=== PATIENT | male | born 1955 | race Caucasian/White ===

== ENCOUNTER 2016-12-04 22:11 | Emergency (ER) | payer MEDICAID ==
[~2016-12-04] VITALS: Ht 188 cm; Wt 43.1 kg
[2016-12-04 22:23] VITALS: BP 146/93
--- NOTE | 2016-12-05 00:18 | NUR ---
PATIENT LEFT WITHOUT BEING SEEN BY DR. ROBERT. NO FURTHER CARE PROVIDED FOR PATIENT.
== END 2016-12-05 00:10 | disposition left against medical advice (07) ==
LOC: MED 22:11
DX: F10.129 Alcohol abuse with intoxication, unspecified (principal); Y90.9 Presence of alcohol in blood, level not specified; Z53.21 Procedure and treatment not carried out due to patient leaving prior to being seen by health care provider

== ENCOUNTER 2017-01-25 01:57 | Emergency (ER) | payer MEDICAID ==
[~2017-01-25] VITALS: Ht 188 cm; Wt 90.7 kg
[2017-01-25 02:06] VITALS: BP 160/119
--- NOTE | 2017-01-25 03:15 | NUR ---
PATIENT LEFT WITHOUT BEING SEEN BY DR. ROBERT. NO FURTHER CARE PROVIDED FOR PATIENT.
[2017-04-28] MEDS ORDERED: BACTRIM 400 MG-1 TAB PO (12:43)
[2017-04-28] MEDS ORDERED: MOTRIN600 MG PO (13:21)
== END 2017-01-25 03:15 | disposition left against medical advice (07) ==
LOC: MED 01:57
DX: M79.604 Pain in right leg (principal); Z53.21 Procedure and treatment not carried out due to patient leaving prior to being seen by health care provider

== ENCOUNTER 2017-04-24 08:44 | Inpatient (IN) | payer MEDICAID ==
[~2017-04-24] VITALS: Ht 188 cm; Wt 95.3 kg
[2017-04-24 08:52] VITALS: BP 166/101
[2017-04-24] MEDS ORDERED: UNKNOWN BP MED (08:57)
--- NOTE | 2017-04-24 09:00 | NUR ---
Patient ambulated to bed 07.
--- NOTE | 2017-04-24 09:02 | NUR ---
Dr. Barahona at bedside.
--- NOTE | 2017-04-24 09:04 | NUR ---
PATIENT PRESENTS TO ED FOR ABSCESS TO HEAD WITH DRAINAGE AND PAIN X1WK. HX HTN, ARTHRITIS . PT STATES HE FEELS NAUSEATED AND VOMITTED; SKIN IS PINK/WARM/DRY; AAOX4 WITH EVEN AND STEADY GAIT; PT DENIES ANY FEVER, CP, SOB, OR COUGH AT THIS TIME; PATIENT STATES PAIN OF 9/10 HEADACHE AT THIS TIME; PATIENT POSITIONED FOR COMFORT; HOB ELEVATED; BEDRAILS UP X2; BED DOWN. ER MD AT BEDSIDE.
[2017-04-24] MEDS ORDERED: IBUPROFEN 400 MG TAB PO ONE (09:10)
[2017-04-24] MEDS ORDERED: ceFAZolin 1,000 MG VIAL IM ONE (09:10)
[2017-04-24] MEDS ORDERED: KETOROLAC 30 MG/ML VIAL IVP ONE (09:20)
[2017-04-24] MEDS ORDERED: ceFAZolin 1,000 MG VIAL ONE (09:33)
--- NOTE | 2017-04-24 09:33 | NUR ---
PATIENT TO CT VIA GURNEY ACCOMPANIED BY MACHINING AND ASSEMBLY SUPERVISOR
--- NOTE | 2017-04-24 09:39 | NUR ---
[facility]
[2017-04-24 09:55] LABS: BASOPHILS # (AUTO) 0.2 K/uL (0.00-0.22); BASOPHILS % (AUTO) 1.8 % (0.0-2.0); EOSINOPHILS # (AUTO) 0.2 K/uL (0-0.4); EOSINOPHILS % (AUTO) 1.4 % (0.0-4.0); HEMATOCRIT 39.6 % (36-52); LYMPHOCYTES # (AUTO) 1.6 K/uL (2.0-11.5); LYMPHOCYTES % (AUTO) 11.4 % (20.5-51.1); MEAN CORPUSCULAR HEMOGLOBIN 32 pg (27-31); MEAN CORPUSCULAR HGB CONC 33 g/dL (33-37); MEAN CORPUSCULAR VOLUME 96 fL (80-94); MONOCYTES # (AUTO) 0.7 K/uL (0.8-1.0); MONOCYTES % (AUTO) 5.4 % (1.7-9.3); NEUTROPHILS # (AUTO) 10.9 K/uL (1.8-7.7); PLATELET COUNT (AUTO) 412 K/uL (140-450); RED BLOOD CELL COUNT(AUTO) 4.12 MIL/uL (4.20-6.10); RED CELL DISTRIBUTION WIDTH 13.1 % (11.6-13.7); WHITE BLOOD COUNT (AUTO) 13.6 K/uL (4.8-10.8)
--- NOTE | 2017-04-24 09:58 | NUR ---
MATTHIEU RUBIN MADE AWARE OF PT'S HIGH BP;
[2017-04-24 10:02] LABS: ALBUMIN 2.6 g/dL (3.4-5.0); ANION GAP 10.2 (8-16); CALCIUM 8.6 mg/dL (8.5-10.1); CARBON DIOXIDE 29.9 mmol/L (21-32); POTASSIUM 3.1 mmol/L (3.5-5.1); TOTAL BILIRUBIN 0.5 mg/dL (0.0-1.0); TOTAL PROTEIN, SERUM 7.2 g/dL (6.4-8.2)
--- NOTE | 2017-04-24 10:02 | NUR ---
ANCEF 500 MG AND IBUPROFEN 400 MG WAS WASTED AT PHARMACEUTICAL BIN;ER CHANGE ORDER OF ANCEF 1000MG IVP AND IBUPROFEN 400 MG TO TORADOL 30 MG IVP.
[2017-04-24 10:04] LABS: LACTIC ACID 1.3 mmol/L (0.4-2.0)
[2017-04-24] MEDS ORDERED: POTASSIUM CHLORIDE 10 MEQ TABER PO ONE (10:10)
[2017-04-24] MEDS ORDERED: MAGNESIUM OXIDE 400 MG TAB PO ONE (10:10)
[2017-04-24] MEDS ORDERED: ENALAPRILAT 2.5 MG/2 ML VIAL IVP ONE (10:10)
[2017-04-24] MEDS ORDERED: ONDANSETRON 4 MG/2 ML VIAL IVP PRN (10:15)
[2017-04-24] MEDS ORDERED: LORazepam 2 MG/ML VIAL IVP PRN (10:15)
[2017-04-24] MEDS ORDERED: ACETAMINOPHEN 325 MG TAB PO PRN (10:15)
--- NOTE | 2017-04-24 10:15 | NUR ---
CALLED PHARMACY MAGNESIUM OXIDE NOT LOADED IN THE PHYXIS;INFORMED ME THEY WILL BRING THE MEDICINE.
[2017-04-24 10:31] LABS: INR 1.1 (0.8-1.2); PARTIAL THROMBOPLASTIN TIME 24.8 secs (22-35.6)
--- NOTE | 2017-04-24 10:33 | NUR ---
XRAY at bedside.
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
--- NOTE | 2017-04-24 10:44 | NUR ---
Patient will be admitted to care of DR GALLEGO. Admited to [facility]. Will go to room 115. Belongings list completed. Report to FANNIE MULLEN.
[2017-04-24 10:54] LABS: APPEARANCE,URINE CLEAR (CLEAR); BILIRUBIN,URINE NEGATIVE (NEGATIVE); BLOOD, URINE NEGATIVE (NEGATIVE); COLOR,URINE YELLOW (YELLOW); LEUKOCYTE ESTERASE ,URINE NEGATIVE (NEGATIVE); NITRITE, URINE NEGATIVE (NEGATIVE); PROTEIN,URINE NEGATIVE (NEGATIVE); UGLUCOSE NEGATIVE (NEGATIVE)
[2017-04-24 11:10] VITALS: BP 146/83
--- NOTE | 2017-04-24 11:10 | NUR ---
RECEIVED PATIENT FROM ED PER WHEELCHAIR. RFA PERIPHERAL IV PATENT AND INTACT. URINE AND BOWEL CONTINENT. PATIENT IS ORIENTED X4. SKIN WARM TO TOUCH WNL, TOENAILS WNL, NO EDEMA, WITH HAIR GROWTH AND +3 BILATERAL PEDAL PULSES. ORIENTED TO CALL LIGHT, BED CONTROL, TV, PHONE. MADE COMFORTABLE IN BED. CALL LIGHT WITHIN REACH. WILL MONITOR PATIENT.
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
[2017-04-24 13:10] VITALS: BP 151/91
--- NOTE | 2017-04-24 13:10 | NUR ---
RECEIVED PT FROM ICU NURSE SEBAS AT BEDSIDE. PT IS SLEEPING. PT HAS IV ON R F/1 20G RUNNING NS@5. PT HAS DSG ON L SCALP AND L F/A. DRY SCABS ON L ELBOW. PT HAS FUNGAL GROWTH ON COCCYX. NO DISTRESS NOTED. CALL LIGHT WITHIN REACH. WILL CONTINUE TO MONITOR. Addendum: 04/24/17 at 1428 by Julius Shell RN PT ALSO HAS A DRY SORE ON R FOOT. MADELYN AT THIS TIME.
--- NOTE | 2017-04-24 13:10 | NUR ---
REPORT GIVEN TO FANNIE LEBLANC FOR CONTINUITY OF CARE. PATIENT IN STABLE CONDITION.
--- NOTE | 2017-04-24 14:28 | NUR ---
PT IS SLEEPING IN BED. NO DISTRESS NOTED. CALL LIGHT WITHIN REACH. WILL CONTINUE TO MONITOR.
[2017-04-24] MEDS ORDERED: ANTIFUNGAL CLEAR OINTMENT TP PRN (14:55)
[2017-04-24] MEDS ORDERED: GAUZE TP PRN (14:55)
[2017-04-24 16:00] VITALS: BP 148/83
--- NOTE | 2017-04-24 16:30 | NUR ---
PT IS SLEEPING IN BED. NO DISTRESS NOTED. CALL LIGHT WITHIN REACH. WILL CONTINUE TO MONITOR.
[2017-04-24] MEDS ORDERED: VANCOMYCIN PER PHARMACY MC PRN (17:35)
--- NOTE | 2017-04-24 17:50 | NUR ---
PT SAT UP IN BED. FINISHED DINNER. TOLERATED WELL. CALL LIGHT WITHIN REACH. WILL CONTINUE TO MONITOR.
--- NOTE | 2017-04-24 19:29 | NUR ---
ENDORSED CARE TO MARTÍNEZ GERCO AT BEDSIDE. PT IN STABLE CONDITION.
[2017-04-24 20:00] VITALS: BP 158/92
--- NOTE | 2017-04-24 20:10 | NUR ---
SEEN PT AWAKE, ALERT AND ORIENTED APPEARS SLEEPY. INITIAL ASSESSMENT DONE. PT HAS DRESSING ON HIS HEAD, DRY BUT APPEARS LOOSE. WILL REINFORCED THE DRESSING. VITAL SIGNS CHECKED. TWKL=644, EXTRA BLANKET REMOVED. ENCOURAGED PT TO DRINK MORE WATER. PT VERBALIZED UNDERSTANDING. IV ANTIBIOTIC GIVEN ORDERED. PT SAID HE HAD BM TODAY. URINAL EMPTIED W/ 400ML CLEAR, YELLOW URINE. SAFETY ENSURED. PT ASKED FOR SANDWICH, CRACKER AND JUICE.
[2017-04-24] MEDS: VANCOMYCIN 1GM/DEXT 5% PREMIX 200 ML IV SCH (20:17)
--- NOTE | 2017-04-24 21:00 | NUR ---
DR CURRY CAME AND ASKED FOR PT UPDATES. HE SAID JUST CONTINUE W/ THE IV VANCOMYCIN FOR NOW. INFORMED HIM ABOT THE LOW GRADE [id number]. NO NEW ORDERS.
--- NOTE | 2017-04-24 22:10 | NUR ---
SEEN PT AWAKE. TEMP RECHECKED:102.1 ICE PACK APPLIED ON PT'S UNDERARM. TYLENOL GIVEN ORDERED. WILL CONTINUE TO MONITOR. URINAL EMPTIED. WATER PITCHER REFILLED.
--- NOTE | 2017-04-25 00:25 | NUR ---
SEEN PT ASLEEP. TEMP CHECKED:99.3 URINAL EMPTIED W/ 300ML CLEAR, YELLOW URINE.
[2017-04-25] MEDS: GAUZE TP SCH ×3 (01:24→13:00)
[2017-04-25] MEDS: ANTIFUNGAL CLEAR OINTMENT TP SCH ×2 (01:24→13:00)
--- NOTE | 2017-04-25 01:24 | NUR ---
SEEN PT ASLEEP BUT EASILY AROUSABLE. PT FORGOT TO PLACE THE URINAL ON THE TABLE WHICH SPILLED ON HIS BED. WILL CHANGE BEDDINGS.
--- NOTE | 2017-04-25 01:30 | NUR ---
PT GOT UP TO THE BATHROOM WHILE HIS BED IS BEING MADE. FLAQUITA EDWARDS ASSISTED PT TO CLEAN HIMSELF W/ WASH CLOTH. ANTI-FUNGAL CREAM APPLIED ON PT'S BUTTOCKS. BEDDINGS CHANGED. PT LIE DOWN ON THE BED. BETADINE APPLIED. NEW KERLIX APPLIED AND WRAPPED AROUND PT'S HEAD. WILL CONTINUE TO MONITOR.
[2017-04-25 04:15] VITALS: BP_SYST 173; BP_SYST 180; BP_DIAS 107; BP_DIAS 94
--- NOTE | 2017-04-25 04:15 | NUR ---
SEEN PT ASLEEP BUT AROUSABLE. VITAL SIGNS CHECKED. BP ELEVATED. PT STATES HE HAS 7/10 PAIN. WILL MEDICATE FOR PAIN.
[2017-04-25] MEDS: HYDROcodone/APAP 5/325 MG 1 TAB TAB PO PRN (04:16)
--- NOTE | 2017-04-25 05:30 | NUR ---
SEEN PT APPEARS ASLEEP BUT AROUSABLE. BP RECHECKED ON LT YSC=424/92 RT PND=881/109. WILL NOTIFY
--- NOTE | 2017-04-25 05:35 | NUR ---
PAGED DR Mansoor GALLEGO. WILL AWAIT FOR CALL BACK.
[2017-04-25 05:49] LABS: BASOPHILS # (AUTO) 0.2 K/uL (0.00-0.22); BASOPHILS % (AUTO) 2.4 % (0.0-2.0); EOSINOPHILS # (AUTO) 0.2 K/uL (0-0.4); HEMATOCRIT 39.7 % (36-52); HEMOGLOBIN 13.3 g/dL (12.0-18.0); LYMPHOCYTES # (AUTO) 1.2 K/uL (2.0-11.5); LYMPHOCYTES % (AUTO) 13.8 % (20.5-51.1); MEAN CORPUSCULAR HEMOGLOBIN 32 pg (27-31); MEAN CORPUSCULAR HGB CONC 33 g/dL (33-37); MEAN CORPUSCULAR VOLUME 96 fL (80-94); MONOCYTES # (AUTO) 0.9 K/uL (0.8-1.0); MONOCYTES % (AUTO) 9.6 % (1.7-9.3); NEUTROPHILS # (AUTO) 6.5 K/uL (1.8-7.7); NEUTROPHILS % (AUTO) 72.2 % (42.2-75.2); PLATELET COUNT (AUTO) 397 K/uL (140-450); RED BLOOD CELL COUNT(AUTO) 4.13 MIL/uL (4.20-6.10); RED CELL DISTRIBUTION WIDTH 13.1 % (11.6-13.7)
--- NOTE | 2017-04-25 06:04 | NUR ---
NO CALL BACK FROM DR Mansoor GALLEGO. PAGED HIM AGAIN.
--- NOTE | 2017-04-25 06:17 | NUR ---
SPOKE TO DR Mansoor GALLEGO REGARDING PT'S ELEVATED BP. HE ORDERED CLONIDINE PRN. ASKED IF HE WANTS PT ON TELE MONITOR. HE SAID "OK." ORDER CARRIED OUT.
[2017-04-25 06:29] LABS: ANION GAP 9.9 (8-16); CALCIUM 8.7 mg/dL (8.5-10.1); POTASSIUM 3.9 mmol/L (3.5-5.1)
--- NOTE | 2017-04-25 06:56 | NUR ---
SEEN PT AWAKE DRINKING COFFEE. BP ON LEFT ARM CHECKED:162/94. PT MEDICATED W/CLONIDINE. WILL RECHECKED BP. PT STATES HIS PAIN IS COMING BACK. WILL INFORMED INCOMING NURSE.
[2017-04-25] MEDS ORDERED: cloNIDine 0.1 MG TAB ONE (06:58)
--- NOTE | 2017-04-25 07:10 | NUR ---
RECEIVED PATIENT REPORT AT BEDSIDE FROM NIGHT NURSE. PATIENT IS AAOX4 AND SHOWS NO S/S OF DISTRESS ON ROOM AIR. NOTED HEAD DRESSING CLEAN DRY AND INTACT. IV NOTED ON THE R FA SL. ON TELE MONITOR. PATIENT HAS 7/10 PAIN AT LACERATION SITE. WILL MEDICATE. PATIENT EDUCATED ON USING THE CALL LIGHT, RAPID RESPONSE, AND AWARE OF POC FOR TODAY. CALL LIGHT WITHIN REACH AND BED IS LOWERED. WILL CONTINUE TO MONITOR.
[2017-04-25 08:00] VITALS: BP 134/84
[2017-04-25] MEDS: VANCOMYCIN 1GM/DEXT 5% PREMIX 200 ML IV SCH ×2 (08:50→20:38)
--- NOTE | 2017-04-25 08:50 | NUR ---
ADMINISTERED SCHEDULED ABX THROUGH THE IV AND IT IS INFUSING WELL. PAGED DR GALLEGO FOR ORDERS FOR PRN PAIN MEDICATION FOR SEVERE PAIN.
--- NOTE | 2017-04-25 09:00 | NUR ---
DR LEAL AT BEDSIDE WITH PATIENT REGARDING PATIENTS RIGHT MEDIAL FOOT CALLUS. DR EXPLAINED AND ASKED FOR CONSENT FOR EXCISIONAL DEBRIDEMENT. PATIENT AGREED. ALL QUESTIONS WERE ANSWERED BY MD. CONSENT WAS SIGNED. MD IS NOW PERFORMING PROCEDURE.
--- NOTE | 2017-04-25 09:12 | NUR ---
PATIENT HAS BEEN SCREENED AND CATEGORIZED HIGH NUTRITION RISK. PATIENT WILL BE SEEN WITHIN 1-2 DAYS OF ADMISSION. 04/24/17-04/25/[address]
--- NOTE | 2017-04-25 09:30 | NUR ---
RECEIVED CALL BACK FROM DR GALLEGO AND RECEIVED ORDERS FOR MORPHINE 2 MG IV Q6H PRN FOR SEVERE PAIN.
--- NOTE | 2017-04-25 09:46 | NUR ---
SPOKE WITH RESIDENT PHYSICIAN, DR LEAL REGARDING PLAN OF CARE. SHE STATED THAT RIGHT MEDIAL FOOT IS JUST A THICK CALLUS AND SHE SCRAPED IT, NO VISIBLE OPEN AREA NOTED. WILL KEEP OPEN TO AIR.
--- NOTE | 2017-04-25 10:40 | NUR ---
CM NOTE PER MOBILE HEALTH VEHICLE OPERATOR BETH, REVIEWS SHOULD ONLY BE FAXED TO [employer] [phone] PH [phone]. FAXED INITIAL REVIEW TO [facility]. Addendum: 04/25/17 at 1148 by Amairani Peters SPOKE WITH LANCE OF [facility] PH [phone] AND HE SAID FAX REVIEWS TO [facility] [phone] PH [phone]. FAXED INITIAL REVIEW TO [facility] KB [facility]ques [phone]
[2017-04-25] MEDS: MORPHINE SULFATE 2 MG/ML SYR IVP PRN ×2 (10:50→16:01)
--- NOTE | 2017-04-25 10:50 | NUR ---
ADMINISTERED MORPHINE 2 MG IVP FOR PAIN LEVEL OF 7/10 AT THE LEFT PARIETAL SCALP LACERATION
--- NOTE | 2017-04-25 11:20 | NUR ---
PATIENT DENIES PAIN. PATIENT SHOWS NO S/S OF DISTRESS ON ROOM AIR. WILL CONTINUE TO MONITOR.
[2017-04-25 12:00] VITALS: BP 152/82
--- NOTE | 2017-04-25 13:00 | NUR ---
PATIENT IS SLEEPING AND SHOWS NO S/S OF DISTRESS ON ROOM AIR.
--- NOTE | 2017-04-25 14:05 | NUR ---
04/25/17 RD INITIAL ASSESSMENT COMPLETED PLEASE REFER TO NUTRITION ASSESSMENT UNDER CARE ACTIVITY FOR ESTIMATED NUTRITIONAL NEEDS. 1. RECOMMEND 1,000-2,000 MG OF VITAMIN C TO PROMOTE WOUND HEALING 2. CONTINUE 2GM SODIUM DIET 3. REFER TO DECAL MAKER NEEDED ALICIA RAMIREZ RD
--- NOTE | 2017-04-25 15:15 | NUR ---
PATIENT IS TAKING A SHOWER WITH DELINQUENCY PREVENTION SOCIAL WORKER PRESENT AT SIDE FOR ASSISTANCE
[2017-04-25 16:00] VITALS: BP 152/98
--- NOTE | 2017-04-25 16:30 | NUR ---
PROVIDED WOUND CARE PER WOUND CONSULT AND MD ORDERS. PATIENT WAS GIVEN MORPHINE 2 MG IVP FOR 7/10 PAIN AT THE LEFT PARIETAL SCALP LACERATION AT 1601. PLEASE SEE WOUND ASSESSMENT.
[2017-04-25] MEDS: cloNIDine 0.1 MG TAB PO PRN (18:18)
--- NOTE | 2017-04-25 18:18 | NUR ---
PATIENT BP IS 152/98 WILL ADMINISTER CLONIDINE PRN FOR SBP>150. PATIENT DENIES CHEST PAIN AND SOB. WILL CONTINUE TO MONITOR AND REASSESS BP IN ONE HR
--- NOTE | 2017-04-25 19:00 | NUR ---
PATIENT IS WATCHING TV AND DENIES CHEST PAIN AND SOB. REASSESS BP AT 140/90. PATIENT SHOWS NO S/S OF DISTRESS ON ROOM AIR. SCALP DRESSING IS CLEAN DRY AND INTACT. BED IS LOWERED WITH CALL LIGHT WITHIN REACH. GAVE PATIENT REPORT AT BEDSIDE TO NIGHT NURSE. PATIENT ENDORSED IN STABLE CONDITION.
--- NOTE | 2017-04-25 19:05 | NUR ---
RECEIVED REPORTS FROM DAY RN, PATIENT RESTING IN BED, NO S/S OF ACUTE DISTRESS NOTED, PATIENT AWAKE ALERT ORIENTED X4, IV FLUSHED WITH NS, PATENT AND INTACT. PATIENT DENIES PAIN AT THIS TIME. PLAN OF CARE DISCUSSED, VERBALIZED UNDERSTANDING, CALL LIGHT WITHIN REACH, SAFETY MEASURE ENSURED, WILL CONTINUE TO MONITOR.
[2017-04-25 20:00] VITALS: BP 140/90
[2017-04-25] MEDS: MUPIROCIN 2% OINT 22 GM TUBE TP SCH (21:00)
[2017-04-25] MEDS: CHLORHEXADINE GLUC 2% CLOTH TP SCH (21:51)
--- NOTE | 2017-04-25 22:15 | NUR ---
PATIENT IS SLEEPING IN BED, NO S/S OF ACUTE DISTRESS NOTED, RESPIRATION EVEN AND UNLABORED, CALL LIGHT WITHIN REACH, SIDE RAILS UPX2, BED AT LOWEST POSITION, WILL CONTINUE TO MONITOR.
[2017-04-26] VITALS: BP 145/96
[2017-04-26] MEDS: ANTIFUNGAL CLEAR OINTMENT TP SCH ×2 (00:14→13:58)
[2017-04-26] MEDS: GAUZE TP SCH ×3 (00:15→13:59)
--- NOTE | 2017-04-26 00:22 | NUR ---
APPLIED ANTIFUNGAL OINTMENT TO THE MARVA AREA ORDERED. PATIENT TOLERATED WELL. PATIENT IS SLEEPING IN BED, NO S/S OF ACUTE DISTRESS NOTED, RESPIRATION EVEN AND UNLABORED, SAFETY MEASURE ENSURED, CALL LIGHT WITHIN REACH, WILL CONTINUE TO MONITOR.
--- NOTE | 2017-04-26 02:23 | NUR ---
PATIENT IS SLEEPING IN BED, NO S/S OF ACUTE DISTRESS NOTED, RESPIRATION EVEN AND UNLABORED, CALL LIGHT WITHIN REACH, SIDE RAILS UPX2, BED AT LOWEST POSITION, WILL CONTINUE TO MONITOR
[2017-04-26 04:00] VITALS: BP 145/94
[2017-04-26] MEDS: MORPHINE SULFATE 2 MG/ML SYR IVP PRN (04:50)
--- NOTE | 2017-04-26 04:57 | NUR ---
PATIENT REPORTED HEADACHE 05/08. PAIN MEDICATION GIVEN ORDERED, PATIENT RESTING IN BED, NO S/S OF ACUTE DISTRESS NOTED, RESPIRATION EVEN AND UNLABORED, SAFETY MEASURE ENSURED, CALL LIGHT WITHIN REACH, WILL CONTINUE TO MONITOR.
--- NOTE | 2017-04-26 06:22 | NUR ---
PATIENT REQUESTED COFFEE, COFFEE OFFERED. PATIENT RESTING IN BED, NO S/S OF ACUTE DISTRESS NOTED, CALL LIGHT WITHIN REACH, SAFETY MEASURE ENSURED, WILL CONTINUE TO MONITOR.
[2017-04-26 07:04] LABS: BASOPHILS # (AUTO) 0.1 K/uL (0.00-0.22); BASOPHILS % (AUTO) 1.3 % (0.0-2.0); EOSINOPHILS # (AUTO) 0.2 K/uL (0-0.4); EOSINOPHILS % (AUTO) 1.9 % (0.0-4.0); HEMATOCRIT 38.8 % (36-52); HEMOGLOBIN 13.1 g/dL (12.0-18.0); LYMPHOCYTES # (AUTO) 1.1 K/uL (2.0-11.5); LYMPHOCYTES % (AUTO) 13.2 % (20.5-51.1); MEAN CORPUSCULAR HEMOGLOBIN 32 pg (27-31); MEAN CORPUSCULAR HGB CONC 34 g/dL (33-37); MEAN CORPUSCULAR VOLUME 95 fL (80-94); MONOCYTES # (AUTO) 0.6 K/uL (0.8-1.0); MONOCYTES % (AUTO) 7.7 % (1.7-9.3); NEUTROPHILS # (AUTO) 6.4 K/uL (1.8-7.7); NEUTROPHILS % (AUTO) 75.9 % (42.2-75.2); PLATELET COUNT (AUTO) 418 K/uL (140-450); RED BLOOD CELL COUNT(AUTO) 4.07 MIL/uL (4.20-6.10)
[2017-04-26 07:19] LABS: ANION GAP 8.8 (8-16); CALCIUM 8.2 mg/dL (8.5-10.1); CARBON DIOXIDE 29.6 mmol/L (21-32); CREATININE 0.9 mg/dL (0.7-1.3); POTASSIUM 4.4 mmol/L (3.5-5.1)
--- NOTE | 2017-04-26 07:25 | NUR ---
ASSUMED CONTINUITY OF CARE. NO SIGNS AND SYMPTOMS OF ACUTE DISTRESS NOTED. INITIAL ASSESSMENT DONE. KEEP COMFORTABLE ON BED. EXPLAINED DIAGNOSIS, PLAN OF CARE, PAIN MANAGEMENT TEACHING, CONTACT ISOLATION PRECAUTION, USE OF CALL LIGHT/BED/TV/BATHROOM. VERBALIZED UNDERSTANDING. FALL PRECAUTION APPLIED. CALL LIGHT WITHIN REACH.
--- NOTE | 2017-04-26 07:35 | NUR ---
ENDORSED PLAN OF CARE TO DAY RN, PATIENT IS IN STABLE CONDITION.
--- NOTE | 2017-04-26 07:36 | NUR ---
Patient's Plan of Care was discussed and reviewed with PINKING SEWING MACHINE OPERATOR: AG ALEMAN. RECEIVED PT IN BED. AWAKE. ALERT ORIENTED X4. NO SOB NOTED AT THIS TIME. DENIES ANY PAIN OR DISCOMFORT AT THIS TIME. PT AMBULATORY. GOOD SKIN CARE PROVIDED. DENIES ANY PROBLEM WITH BOWEL OR BLADDER ELIMINATION AT THIS TIME. SAFETY PRECAUTION IN PLACE. CALL LIGHT WITHIN REACH.
[2017-04-26 07:50] LABS: WHITE BLOOD COUNT (AUTO) 8.4 K/uL (4.8-10.8)
[2017-04-26 08:00] VITALS: BP 147/94
[2017-04-26] MEDS: VANCOMYCIN 1GM/DEXT 5% PREMIX 200 ML IV SCH (08:07)
--- NOTE | 2017-04-26 08:13 | NUR ---
MACEY ANTONY CAME, CHECKED PT. CHART AND SEEN PT..
[2017-04-26] MEDS: ASCORBIC ACID 500 MG TAB PO SCH (09:16)
[2017-04-26] MEDS: MUPIROCIN 2% OINT 22 GM TUBE TP SCH (09:30)
--- NOTE | 2017-04-26 10:42 | NUR ---
DR. CURRY CAME, CHECKED PT. CHART, AND SEEN PT..
[2017-04-26 12:00] VITALS: BP 137/81
--- NOTE | 2017-04-26 13:50 | NUR ---
WOUND CARE DONE PER MD ORDER. TOLERATED WELL. NO C/O PAIN. KEEP COMFORTABLE ON BED.
[2017-04-26 16:00] VITALS: BP 145/95
[2017-04-26] MEDS: HYDROcodone/APAP 5/325 MG 1 TAB TAB PO PRN (16:12)
--- NOTE | 2017-04-26 18:46 | NUR ---
WATCHING TV AT THIS TIME. NO ACUTE DISTRESS NOTED. IN STABLE CONDITION.
--- NOTE | 2017-04-26 19:40 | NUR ---
RECEIVED REPORTS FROM DAY RN, PATIENT RESTING IN BED AND WATCHING TV, NO S/S OF ACUTE DISTRESS NOTED, PATIENT DENIES PAIN AT THIS TIME. FLUSHED IV WITH NS, PATENT AND INTACT. DISCUSSED PLAN OF CARE, PATIENT VERBALIZED UNDERSTANDING, CALL LIGHT WITHIN REACH, SIDE RAIL UP X2, BED AT LOWEST POSITION, WILL CONTINUE TO MONITOR.
[2017-04-26 20:00] VITALS: BP 157/89
[2017-04-26] MEDS: cloNIDine 0.1 MG TAB PO PRN (20:03)
[2017-04-26] MEDS: VANCOMYCIN 1,250 MG in DEXTROSE 5% 250 ML IV SCH (20:04)
--- NOTE | 2017-04-26 20:10 | NUR ---
BP 157/89, PRN CATAPRES 0.1MG GIVEN ORDERED. VANCOMYCIN TROUGH 10.6, PM VANCOMYCIN STARTED. PATIENT TOLERATED WELL. CALL LIGHT WITHIN REACH, SIDE RAILS UP X2, WILL CONTINUE TO MONITOR.
[2017-04-26] MEDS: CHLORHEXADINE GLUC 2% CLOTH TP SCH (21:42)
--- NOTE | 2017-04-26 21:46 | NUR ---
BP 148/80, HR 68. PATIENT IS SLEEPING IN BED NOW, RESPIRATION EVEN AND UNLABORED, NO S/S OF ACUTE DISTRESS NOTED, CALL LIGHT WITHIN REACH, SAFETY MEASURE ENSURED, WILL CONTINUE TO MONITOR.
[2017-04-27] VITALS: BP 146/93
[2017-04-27] MEDS: ANTIFUNGAL CLEAR OINTMENT TP SCH ×2 (00:11→13:19)
[2017-04-27] MEDS: GAUZE TP SCH ×3 (00:12→13:19)
--- NOTE | 2017-04-27 01:49 | NUR ---
MADE ROUNDS, PATIENT SLEEPING IN BED, NO S/S OF ACUTE DISTRESS NOTED, RESPIRATION EVEN AND UNLABORED, CALL LIGHT WITHIN REACH, SAFETY MEASURE ENSURED, WILL CONTINUE TO MONITOR.
--- NOTE | 2017-04-27 03:25 | NUR ---
PATIENT REPORTED THE IV PUMP WAS BEEPING, FIX THE IV AND OFFERED PATIENT WATER. PATIENT IS SLEEPING IN BED, RESPIRATION EVEN AND UNLABORED, ALL NEEDS ATTENDED, WILL CONTINUE TO MONITOR.
[2017-04-27 04:00] VITALS: BP 148/92
--- NOTE | 2017-04-27 04:49 | NUR ---
MADE ROUNDS, PATIENT ASLEEP IN BED, NO S/S OF ACUTE DISTRESS NOTED, RESPIRATION EVEN AND UNLABORED, EASY TO AROUSE. CALL LIGHT WITHIN REACH, SAFETY MEASURE ENSURED, WILL CONTINUE TO MONITOR.
[2017-04-27 06:18] LABS: ANION GAP 8.9 (8-16); CALCIUM 9.1 mg/dL (8.5-10.1); CARBON DIOXIDE 29.6 mmol/L (21-32); CREATININE 0.9 mg/dL (0.7-1.3); POTASSIUM 4.5 mmol/L (3.5-5.1)
--- NOTE | 2017-04-27 06:43 | NUR ---
PATIENT IS SLEEPING IN BED, RESPIRATION EVEN AND UNLABORED, EASY TO AROUSE, CALL LIGHT WITHIN REACH, SAFETY MEASURE ENSURED, WILL CONTINUE TO MONITOR.
--- NOTE | 2017-04-27 07:11 | NUR ---
ENDORSED PLAN OF CARE TO DAY RN. PATIENT IS RESTING IN BED AND IN STABLE CONDITION.
--- NOTE | 2017-04-27 07:24 | NUR ---
RECEIVED PT ON BED. AWAKE, ALERT ORIENTED X4. NO SOB NOTED. DENIES ANY PAIN OR DISCOMFORT AT THIS TIME. POSITIVE BOWEL SOUNDS NOTED ON FOUR QUADRANTS. PT ON BEDREST. URINAL AT BEDSIDE. DRESSING ON HEAD DRY, BUT LOOSE, REINFORCEMENT NEEDED. DENIES ANY PROBLEM WITH BOWEL OF BLADDER ELIMINATION AT THIS TIME. SAFETY PRECAUTION IN PLACE. CALL LIGHT WITHIN REACH. MAINTAINED ON CONTACT PRECAUTION.
[2017-04-27 08:00] VITALS: BP 154/89
[2017-04-27] MEDS: ASCORBIC ACID 500 MG TAB PO SCH (08:36)
[2017-04-27] MEDS: VANCOMYCIN 1,250 MG in DEXTROSE 5% 250 ML IV SCH ×2 (08:36→20:54)
[2017-04-27] MEDS: cloNIDine 0.1 MG TAB PO PRN ×2 (08:38→16:14)
[2017-04-27] MEDS: MUPIROCIN 2% OINT 22 GM TUBE TP SCH (08:43)
[2017-04-27] MEDS: MORPHINE SULFATE 2 MG/ML SYR IVP PRN (09:12)
[2017-04-27 12:00] VITALS: BP 143/79
[2017-04-27] MEDS: HYDROcodone/APAP 5/325 MG 1 TAB TAB PO PRN (12:44)
[2017-04-27 16:00] VITALS: BP 157/89
--- NOTE | 2017-04-27 17:00 | NUR ---
DRESSING ON HEAD FOR LEFT HEAD LACERATION WITH ABSCESS REINFORCED. GOOD SKIN CARE PROVIDED. SECURED WITH GAUZE. PT DENIES ANY PAIN OR DISCOMFORT AT THIS TIME. NO SOB.
--- NOTE | 2017-04-27 19:30 | NUR ---
PT KEPT CLEAN, DRY AND COMFORTABLE, NEEDS ATTENDED. ENDORSED TO NEXT SHIFT ON STABLE CONDITION FOR CONTINUITY OF CARE.
--- NOTE | 2017-04-27 19:31 | NUR ---
PATIENT IS CURRENTLY RESTING IN BED AWAKE IVF INFUSING WELL IV SITE PATENT. NO COMPLAINS OF PAIN AND DISCOMFORT NOTED.WILL CONTINUE TO MONITOR. CALL LIGHT WITHIN REACH.
[2017-04-27 20:00] VITALS: BP 151/86
--- NOTE | 2017-04-27 20:00 | NUR ---
Patient's Plan of Care was discussed and reviewed with KALPESH: KI
[2017-04-27] MEDS: CHLORHEXADINE GLUC 2% CLOTH TP SCH (21:06)
--- NOTE | 2017-04-27 22:40 | NUR ---
PATIENT RESTING IN BED WATCHING TV,NEEDS MET, DENIES PAIN.CALL LIGHT WITHIN REACH.
[2017-04-28] VITALS: BP 145/88
--- NOTE | 2017-04-28 00:08 | NUR ---
PATIENT IS RESTING COMFORTABLY IN BED NO PAIN OR DISCOMFORT NOTED.NEEDS MET WILL CONTINUE TO MONITOR.
[2017-04-28] MEDS: ANTIFUNGAL CLEAR OINTMENT TP SCH ×2 (01:06→13:00)
[2017-04-28] MEDS: GAUZE TP SCH ×3 (01:06→13:00)
--- NOTE | 2017-04-28 03:00 | NUR ---
PATIENT IS CURRENTLY RESTING IN BED AT THIS TIME DENIES PAIN.WILL CONTINUE TO MONITOR.CALL LIGHT WITHIN REACH.
[2017-04-28 04:45] VITALS: BP 137/93
--- NOTE | 2017-04-28 05:10 | NUR ---
PATIENT WAS ASSISTED TO THE BATHROOM AND BED LINEN WAS COMPLETELY CHANGED WITH THE ASSISTANCE OF FLAQUITA PAGAN AND FLAQUITA HUNG. PATIENT STABLE DRESSING TO HIS HEAD CURRENTLY DRY AND INTACT AND PATIENT CONTINUES TO REST IN BED CALL LIGHT WITHIN REACH.
--- NOTE | 2017-04-28 06:36 | NUR ---
PATIENT STABLE RESTING COMFORTABLY IN BED AT THIS TIME WILL CONTINUE TO MONITOR.
[2017-04-28 06:57] LABS: BASOPHILS # (AUTO) 0.1 K/uL (0.00-0.22); BASOPHILS % (AUTO) 1.1 % (0.0-2.0); EOSINOPHILS # (AUTO) 0.2 K/uL (0-0.4); HEMATOCRIT 41.2 % (36-52); HEMOGLOBIN 13.6 g/dL (12.0-18.0); LYMPHOCYTES # (AUTO) 1.3 K/uL (2.0-11.5); LYMPHOCYTES % (AUTO) 16.2 % (20.5-51.1); MEAN CORPUSCULAR HEMOGLOBIN 32 pg (27-31); MEAN CORPUSCULAR HGB CONC 33 g/dL (33-37); MEAN CORPUSCULAR VOLUME 96 fL (80-94); MONOCYTES # (AUTO) 0.5 K/uL (0.8-1.0); MONOCYTES % (AUTO) 6.5 % (1.7-9.3); NEUTROPHILS # (AUTO) 5.8 K/uL (1.8-7.7); NEUTROPHILS % (AUTO) 74.2 % (42.2-75.2); PLATELET COUNT (AUTO) 476 K/uL (140-450); RED BLOOD CELL COUNT(AUTO) 4.29 MIL/uL (4.20-6.10); WHITE BLOOD COUNT (AUTO) 7.9 K/uL (4.8-10.8)
[2017-04-28 07:14] LABS: ANION GAP 6.4 (8-16); CARBON DIOXIDE 31.5 mmol/L (21-32); CREATININE 1.1 mg/dL (0.7-1.3); POTASSIUM 4.9 mmol/L (3.5-5.1)
--- NOTE | 2017-04-28 07:25 | NUR ---
RECEIVED CALL FROM LAB REGARDING VANCO TROUGH RESULT 16.8. CALLED SUSANJAYJAY SPOKE TO JON MADE AWARE OF VANCO TROUGH RESULT AND SHE SAID TO OK TO GIVE DUE ORDERED DOSE 0800.
--- NOTE | 2017-04-28 07:30 | NUR ---
RECEIVED PT IN BED. AWAKE. ALERT ORIENTEDX4. NO SOB NOTED. DENIES ANY PAIN OR DISCOMFORT AT THIS TIME. POSITIVE BOWEL SOUNDS NOTED ON FOUR QUADRANTS. DRESSING ON LEFT PARIETAL DRY AND INTACT. PT AMBULATORY. SAFETY PRECAUTION IN PLACE. MAINTAINED ON CONTACT PRECAUTION. CALL LIGHT WITHIN REACH.
--- NOTE | 2017-04-28 07:30 | NUR ---
PATIENT IS CURRENTLY RESTING IN BED NO PAIN OR DISCOMFORT DRESSING TO HEAD REMAINS DRY AN INTACT.FANNIE BATISTA WILL RESUME CARE OF THE PATIENT.
[2017-04-28 08:00] VITALS: BP 141/90
[2017-04-28] MEDS: ASCORBIC ACID 500 MG TAB PO SCH (08:45)
[2017-04-28] MEDS: VANCOMYCIN 1,250 MG in DEXTROSE 5% 250 ML IV SCH (08:45)
[2017-04-28] MEDS: HYDROcodone/APAP 5/325 MG 1 TAB TAB PO PRN ×2 (08:45→15:55)
[2017-04-28] MEDS: MUPIROCIN 2% OINT 22 GM TUBE TP SCH (08:46)
--- NOTE | 2017-04-28 09:05 | NUR ---
CM NOTE CONCURRENT REVIEW FAXED TO [facility] [phone]. LEFT [facility] MESSAGE RE: DISCHARGE PLAN, PH [phone], WAITING FOR CALL BACK. WILL FOLLOW UP.
--- NOTE | 2017-04-28 10:45 | NUR ---
CM NOTE: LEFT MESSAGE FOR [facility] RE: DISCHARGE PLAN, PH [phone]
[2017-04-28 12:00] VITALS: BP 134/82
[2017-04-28] MEDS ORDERED: SULF-58 PO (12:43)
[2017-04-28] MEDS ORDERED: IBUP-2213 PO (13:21)
[2017-04-28 16:00] VITALS: BP 148/87
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
== END 2017-04-28 17:05 | disposition home or self-care (01) | DRG 720 ==
LOC: MED 08:44 → MTU 10:27
PROVIDERS: ADMIT Preventive Medicine Preventive Medicine/Occupational Environmental Medicine; ATTEND Preventive Medicine Preventive Medicine/Occupational Environmental Medicine
PROC: 0HBMXZZ Excision of Right Foot Skin, External Approach (ICD-10-PCS; principal; 2017-04-25)
DX: A41.9 Sepsis, unspecified organism (principal); E43 Unspecified severe protein-calorie malnutrition; E87.5 Hyperkalemia; E88.09 Other disorders of plasma-protein metabolism, not elsewhere classified; I10 Essential (primary) hypertension; L02.811 Cutaneous abscess of head [any part, except face]; L03.114 Cellulitis of left upper limb; E83.52 Hypercalcemia; S01.00XA Unspecified open wound of scalp, initial encounter; B96.89 Other specified bacterial agents as the cause of diseases classified elsewhere; B95.62 Methicillin resistant Staphylococcus aureus infection as the cause of diseases classified elsewhere; R23.4 Changes in skin texture; M19.90 Unspecified osteoarthritis, unspecified site; L03.811 Cellulitis of head [any part, except face]; E87.6 Hypokalemia; R73.9 Hyperglycemia, unspecified; L84 Corns and callosities; R74.0 Nonspecific elevation of levels of transaminase and lactic acid dehydrogenase [LDH]; F17.200 Nicotine dependence, unspecified, uncomplicated; Z87.828 Personal history of other (healed) physical injury and trauma; Z68.27 Body mass index [BMI] 27.0-27.9, adult; Z87.81 Personal history of (healed) traumatic fracture
CPT/HCPCS: 36415; 70450; 71010; 73630; 80048; 80053; 80202; 81003; 83605; 83880; 85025; 85610; 85651; 85730; 86140; 87040; 87070; 87081; 87086; 87186; 90471; 90715; 93005; 96365; 96375; 97116; 99285; J0690; J1885; J2270; J3370; J3490; J7030; J7060

== ENCOUNTER 2018-02-12 02:19 | Inpatient (IN) | payer MEDICAID ==
[2018-02-11 06:40] VITALS: BP 115/75
[2018-02-12] VITALS (63 sets, daily range): BP systolic 106–179; BP diastolic 71–133
[~2018-02-12] VITALS: Ht 170.2 cm; Wt 83.0 kg
[~2018-02-12 02:19] MED LIST: IBUP-2213 PO; SULF-58 PO; UNKNOWN BP MED
[2018-02-12] MEDS ORDERED: predniSONE 20 MG TAB PO ONE (02:25)
[2018-02-12] MEDS ORDERED: ALBUTEROL 0.083% 2.5 MG/3 ML NEBU INH ONE ×2 (02:25→03:05)
[2018-02-12] MEDS ORDERED: ALBUTEROL SULFATE/IPRATROPIU 3 ML SOL IH ONE ×2 (02:25→03:05)
[2018-02-12 02:42] LABS: BASOPHILS # (AUTO) 0.3 K/uL (0.00-0.22); BASOPHILS % (AUTO) 2.3 % (0.0-2.0); EOSINOPHILS # (AUTO) 0.2 K/uL (0-0.4); EOSINOPHILS % (AUTO) 1.5 % (0.0-4.0); HEMATOCRIT 45.8 % (36-52); HEMOGLOBIN 14.5 g/dL (12.0-18.0); LYMPHOCYTES # (AUTO) 1.7 K/uL (2.0-11.5); LYMPHOCYTES % (AUTO) 14.9 % (20.5-51.1); MEAN CORPUSCULAR HEMOGLOBIN 29 pg (27-31); MEAN CORPUSCULAR HGB CONC 32 g/dL (33-37); MEAN CORPUSCULAR VOLUME 91.2 fL (80-94); MONOCYTES # (AUTO) 1.1 K/uL (0.8-1.0); MONOCYTES % (AUTO) 9.2 % (1.7-9.3); NEUTROPHILS # (AUTO) 8.2 K/uL (1.8-7.7); NEUTROPHILS % (AUTO) 72.1 % (42.2-75.2); PLATELET COUNT (AUTO) 465 K/uL (140-450); RED BLOOD CELL COUNT(AUTO) 5.02 MIL/uL (4.20-6.10); RED CELL DISTRIBUTION WIDTH 12.7 % (11.6-13.7); WHITE BLOOD COUNT (AUTO) 11.6 K/uL (4.8-10.8)
[2018-02-12 02:49] LABS: ANION GAP 13.8 (8-16); CARBON DIOXIDE 25.4 mmol/L (21-32); CREATININE 1.2 mg/dL (0.7-1.3); POTASSIUM 3.2 mmol/L (3.5-5.1)
[2018-02-12 02:56] LABS: ALBUMIN 3.4 g/dL (3.4-5.0); TOTAL BILIRUBIN 0.6 mg/dL (0.0-1.0)
[2018-02-12 03:07] LABS: PROTHROMBIN TIME 11.6 secs (10.8-13.4)
[2018-02-12] MEDS ORDERED: FUROSEMIDE 40 MG/4 ML VIAL IVP ONE (03:15)
[2018-02-12] MEDS ORDERED: PROPOFOL 1000 MG/100 ML PREMIX 100 ML IV ONE ×2 (03:46→03:50)
[2018-02-12] MEDS ORDERED: SUCCINYLCHOLINE CHLORIDE 200 MG/10 ML VIAL IVP ONE (03:50)
[2018-02-12] MEDS ORDERED: ETOMIDATE 20 MG/10 ML VIAL IVP ONE (03:50)
[2018-02-12] MEDS ORDERED: LORazepam 2 MG/ML VIAL IVP ONE (03:55)
[2018-02-12] MEDS ORDERED: LORazepam 2 MG/ML VIAL ONE (03:59)
[2018-02-12] MEDS ORDERED: DOCUSATE SODIUM 100 MG GELCAP PO PRN (04:35)
[2018-02-12] MEDS ORDERED: ACETAMINOPHEN 325 MG TAB PO PRN (04:35)
[2018-02-12] MEDS ORDERED: ONDANSETRON 4 MG/2 ML VIAL IM/IVP PRN (04:35)
[2018-02-12] MEDS ORDERED: HEPARIN PER PHARMACY MC PRN (04:40)
[2018-02-12] MEDS ORDERED: hePARIN / DEXT 5% PREMIX 250 ML IV SCH (04:40)
[2018-02-12] MEDS ORDERED: NACL 0.9% 1,000 ML IV SCH (05:00)
[2018-02-12 05:20] LABS: CHOL/HDL RATIO 3.4 (1-4.5); MAGNESIUM 1.8 mg/dL (1.8-2.4); PHOSPHORUS 4.6 mg/dL (2.5-4.9); THYROID STIMULATING HORMONE 2.43 uIU/mL (0.34-3.74)
[2018-02-12] MEDS ORDERED: KCL 20 MEQ/WATER INJ PREMIX 200 ML IV SCH (06:00)
[2018-02-12 06:10] LABS: APPEARANCE,URINE CLEAR (CLEAR); BILIRUBIN,URINE NEGATIVE (NEGATIVE); BLOOD, URINE TRACE-I (NEGATIVE); COLOR,URINE YELLOW (YELLOW); LEUKOCYTE ESTERASE ,URINE NEGATIVE (NEGATIVE); NITRITE, URINE NEGATIVE (NEGATIVE); PH,URINE 5.5 (5.0-9.0); UGLUCOSE NEGATIVE (NEGATIVE)
[2018-02-12 06:15] LABS: CALCIUM OXALATE CRYSTALS,UR 0-3 /HPF (None Seen); RBC,URINE 0-5 (RARE) /HPF (0-5); WBC,URINE 0-5 (RARE) /HPF (0-5)
[2018-02-12] MEDS ORDERED: PROPOFOL 1000 MG/100 ML PREMIX 100 ML IV PRN (06:50)
[2018-02-12] MEDS ORDERED: HYDROmorphone 1 MG/ML AMP IVP SCH (08:35)
[2018-02-12] MEDS ORDERED: LORazepam 2 MG/ML VIAL IVP SCH (08:35)
[2018-02-12] MEDS ORDERED: FUROSEMIDE 20 MG/2 ML VIAL IVP SCH (09:00)
[2018-02-12] MEDS: hePARIN / DEXT 5% PREMIX 250 ML IV SCH (09:52)
[2018-02-12] MEDS: LACTOBACILLUS RHAMNOSUS GG 1 EACH CAP PO SCH (09:53)
[2018-02-12] MEDS: MORPHINE SULFATE 4 MG/ML SYR IVP PRN ×2 (10:41→22:53)
[2018-02-12] MEDS: MIDAZOLAM MDV 50 MG in NACL 0.9% 40 ML IV PRN ×3 (11:09→21:51)
[2018-02-12 16:44] LABS: PROTHROMBIN TIME 12.4 secs (10.8-13.4)
[2018-02-12] MEDS: FUROSEMIDE 40 MG/4 ML VIAL IVP SCH (17:00)
[2018-02-12] MEDS ORDERED: PANTOPRAZOLE 40 MG INJ VIAL IVP SCH (18:00)
[2018-02-12 23:45] LABS: PROTHROMBIN TIME 12.5 secs (10.8-13.4)
[2018-02-13] VITALS (66 sets, daily range): BP systolic 101–136; BP diastolic 69–88
[2018-02-13] MEDS: MIDAZOLAM MDV 50 MG in NACL 0.9% 40 ML IV PRN ×2 (02:36→07:33)
[2018-02-13] MEDS ORDERED: PIPERACILLIN/TAZOBACTAM 3.375 GM VIAL IV ONE (05:13)
[2018-02-13] MEDS: MORPHINE SULFATE 4 MG/ML SYR IVP PRN ×2 (05:15→14:52)
[2018-02-13] MEDS: PIPER/TAZO 3.375GM/D5W PREMIX 50 ML IV SCH ×3 (05:15→20:59)
[2018-02-13 06:30] LABS: T4 (THYROXINE) 5.4 ug/dL (4.5-12.0)
[2018-02-13 06:43] LABS: BASOPHILS % (AUTO) 0.1 % (0.0-2.0); HEMOGLOBIN 12.7 g/dL (12.0-18.0); LYMPHOCYTES # (AUTO) 0.7 K/uL (2.0-11.5); LYMPHOCYTES % (AUTO) 8.2 % (20.5-51.1); MEAN CORPUSCULAR HEMOGLOBIN 30 pg (27-31); MEAN CORPUSCULAR HGB CONC 33 g/dL (33-37); MEAN CORPUSCULAR VOLUME 91.2 fL (80-94); MONOCYTES # (AUTO) 0.5 K/uL (0.8-1.0); MONOCYTES % (AUTO) 6.4 % (1.7-9.3); NEUTROPHILS % (AUTO) 85.3 % (42.2-75.2); PLATELET COUNT (AUTO) 300 K/uL (140-450); RED BLOOD CELL COUNT(AUTO) 4.17 MIL/uL (4.20-6.10); RED CELL DISTRIBUTION WIDTH 13.6 % (11.6-13.7); WHITE BLOOD COUNT (AUTO) 8.2 K/uL (4.8-10.8)
[2018-02-13] MEDS: hePARIN / DEXT 5% PREMIX 250 ML IV SCH (06:48)
[2018-02-13] MEDS: PANTOPRAZOLE 40 MG INJ VIAL IVP SCH (09:02)
[2018-02-13] MEDS: FUROSEMIDE 40 MG/4 ML VIAL IVP SCH ×2 (09:02→17:10)
[2018-02-13] MEDS: ATORVASTATIN 20 MG TAB PO SCH (09:03)
[2018-02-13] MEDS: ECOTRIN 81 MG TABEC PO SCH (09:03)
[2018-02-13] MEDS: LACTOBACILLUS RHAMNOSUS GG 1 EACH CAP PO SCH (09:03)
[2018-02-13] MEDS: CLOPIDOGREL 75 MG TAB PO SCH (09:03)
[2018-02-13 11:17] LABS: ANION GAP 13.8 (8-16); CREATININE 1.1 mg/dL (0.7-1.3); POTASSIUM 3.8 mmol/L (3.5-5.1)
[2018-02-13 13:24] LABS: MAGNESIUM 1.9 mg/dL (1.8-2.4)
[2018-02-13] MEDS ORDERED: PROPOFOL 1000 MG/100 ML PREMIX 100 ML IV PRN (13:50)
[2018-02-13 14:54] LABS: BARBITURATE, URINE NEG. ng/ml (NEG <=200); BENZODIAZEPINE, URINE POS. ng/mL (NEG <=200); CANNABINOID, URINE NEG. ng/mL (NEG <=50); COCAINE, URINE NEG. ng/mL (NEG <=300); OPIATE, URINE POS. ng/mL (NEG <=2000); PHENCYCLIDINE SCREEN,URINE NEG. ng/mL (NEG <=25)
[2018-02-14] VITALS (10 sets, daily range): BP systolic 97–141; BP diastolic 59–88
[2018-02-14] MEDS: hePARIN / DEXT 5% PREMIX 250 ML IV SCH (00:27)
[2018-02-14 01:28] LABS: PROTHROMBIN TIME 12.3 secs (10.8-13.4)
[2018-02-14] MEDS: PIPER/TAZO 3.375GM/D5W PREMIX 50 ML IV SCH ×3 (04:24→20:12)
[2018-02-14 06:07] LABS: HEMATOCRIT 38.7 % (36-52); MEAN CORPUSCULAR HEMOGLOBIN 30 pg (27-31); MEAN CORPUSCULAR HGB CONC 34 g/dL (33-37); MEAN CORPUSCULAR VOLUME 90.6 fL (80-94); PLATELET COUNT (AUTO) 302 K/uL (140-450); RED BLOOD CELL COUNT(AUTO) 4.27 MIL/uL (4.20-6.10); RED CELL DISTRIBUTION WIDTH 13.5 % (11.6-13.7); WHITE BLOOD COUNT (AUTO) 7.4 K/uL (4.8-10.8)
[2018-02-14 06:17] LABS: ANION GAP 9.5 (8-16); CARBON DIOXIDE 31.6 mmol/L (21-32); CREATININE 1.3 mg/dL (0.7-1.3); POTASSIUM 3.1 mmol/L (3.5-5.1)
[2018-02-14 06:21] LABS: MAGNESIUM 1.8 mg/dL (1.8-2.4); PHOSPHORUS 3.7 mg/dL (2.5-4.9)
[2018-02-14 06:22] LABS: LYMPHOCYTES % (MANUAL) 24 % (20-46); MONOCYTES % (MANUAL) 8 % (5-12)
[2018-02-14 06:31] LABS: PROTHROMBIN TIME 12.1 secs (10.8-13.4)
[2018-02-14] MEDS ORDERED: KCL 20 MEQ/WATER INJ PREMIX 200 ML IV ONE (08:15)
[2018-02-14] MEDS: LACTOBACILLUS RHAMNOSUS GG 1 EACH CAP PO SCH (09:00)
[2018-02-14] MEDS: CLOPIDOGREL 75 MG TAB PO SCH (09:00)
[2018-02-14] MEDS: ATORVASTATIN 20 MG TAB PO SCH (09:00)
[2018-02-14] MEDS: ECOTRIN 81 MG TABEC PO SCH (09:01)
[2018-02-14] MEDS: LISINOPRIL 5 MG TAB PO SCH (09:01)
[2018-02-14] MEDS: FUROSEMIDE 40 MG/4 ML VIAL IVP SCH ×2 (09:01→17:00)
[2018-02-14] MEDS: CARVEDILOL 3.125 MG TAB PO SCH (09:01)
[2018-02-14] MEDS: PANTOPRAZOLE 40 MG INJ VIAL IVP SCH (09:02)
[2018-02-15] VITALS: BP 126/89
[2018-02-15 04:00] VITALS: BP 120/83
[2018-02-15] MEDS: PIPER/TAZO 3.375GM/D5W PREMIX 50 ML IV SCH ×3 (04:09→20:52)
[2018-02-15 07:33] LABS: BASOPHILS % (AUTO) 0.2 % (0.0-2.0); EOSINOPHILS # (AUTO) 0.1 K/uL (0-0.4); EOSINOPHILS % (AUTO) 1.5 % (0.0-4.0); HEMATOCRIT 40.3 % (36-52); HEMOGLOBIN 13.6 g/dL (12.0-18.0); LYMPHOCYTES # (AUTO) 1.6 K/uL (2.0-11.5); LYMPHOCYTES % (AUTO) 19.7 % (20.5-51.1); MEAN CORPUSCULAR HEMOGLOBIN 31 pg (27-31); MEAN CORPUSCULAR HGB CONC 34 g/dL (33-37); MEAN CORPUSCULAR VOLUME 90.5 fL (80-94); MONOCYTES # (AUTO) 0.6 K/uL (0.8-1.0); MONOCYTES % (AUTO) 7.7 % (1.7-9.3); NEUTROPHILS # (AUTO) 5.7 K/uL (1.8-7.7); NEUTROPHILS % (AUTO) 70.9 % (42.2-75.2); PLATELET COUNT (AUTO) 322 K/uL (140-450); RED BLOOD CELL COUNT(AUTO) 4.46 MIL/uL (4.20-6.10); RED CELL DISTRIBUTION WIDTH 13.2 % (11.6-13.7)
[2018-02-15 07:39] LABS: ALBUMIN 2.7 g/dL (3.4-5.0); ANION GAP 9.3 (8-16); CREATININE 1.1 mg/dL (0.7-1.3); MAGNESIUM 1.8 mg/dL (1.8-2.4); PHOSPHORUS 3.8 mg/dL (2.5-4.9); POTASSIUM 3.3 mmol/L (3.5-5.1); TOTAL BILIRUBIN 0.5 mg/dL (0.0-1.0)
[2018-02-15 08:00] VITALS: BP 127/82
[2018-02-15] MEDS: LISINOPRIL 5 MG TAB PO SCH (09:06)
[2018-02-15] MEDS: ECOTRIN 81 MG TABEC PO SCH (09:06)
[2018-02-15] MEDS: PANTOPRAZOLE 40 MG INJ VIAL IVP SCH (09:07)
[2018-02-15] MEDS: ATORVASTATIN 20 MG TAB PO SCH (09:07)
[2018-02-15] MEDS: CARVEDILOL 3.125 MG TAB PO SCH ×2 (09:07→20:52)
[2018-02-15] MEDS: LACTOBACILLUS RHAMNOSUS GG 1 EACH CAP PO SCH (09:07)
[2018-02-15] MEDS: CLOPIDOGREL 75 MG TAB PO SCH (09:07)
[2018-02-15] MEDS: FUROSEMIDE 40 MG/4 ML VIAL IVP SCH ×2 (09:08→16:53)
[2018-02-15 11:50] VITALS: BP 107/72
[2018-02-15] MEDS ORDERED: POTASSIUM CHLORIDE 10 MEQ TABER PO SCH (14:50)
[2018-02-15 16:00] VITALS: BP 110/66
[2018-02-15 20:00] VITALS: BP 118/75
[2018-02-15] MEDS: HYDROcodone/APAP 7.5/325 MG 1 TAB PO PRN (22:57)
[2018-02-16] VITALS: BP 135/85
[2018-02-16 04:00] VITALS: BP 132/88
[2018-02-16] MEDS: PIPER/TAZO 3.375GM/D5W PREMIX 50 ML IV SCH ×3 (05:28→20:39)
[2018-02-16 06:23] LABS: BASOPHILS % (AUTO) 0.2 % (0.0-2.0); EOSINOPHILS # (AUTO) 0.2 K/uL (0-0.4); EOSINOPHILS % (AUTO) 2.5 % (0.0-4.0); HEMATOCRIT 41.9 % (36-52); HEMOGLOBIN 14.1 g/dL (12.0-18.0); LYMPHOCYTES # (AUTO) 1.8 K/uL (2.0-11.5); LYMPHOCYTES % (AUTO) 21.8 % (20.5-51.1); MEAN CORPUSCULAR HEMOGLOBIN 30 pg (27-31); MEAN CORPUSCULAR HGB CONC 34 g/dL (33-37); MEAN CORPUSCULAR VOLUME 90.4 fL (80-94); MONOCYTES # (AUTO) 0.7 K/uL (0.8-1.0); MONOCYTES % (AUTO) 8.1 % (1.7-9.3); NEUTROPHILS # (AUTO) 5.6 K/uL (1.8-7.7); NEUTROPHILS % (AUTO) 67.4 % (42.2-75.2); PLATELET COUNT (AUTO) 346 K/uL (140-450); RED BLOOD CELL COUNT(AUTO) 4.63 MIL/uL (4.20-6.10); RED CELL DISTRIBUTION WIDTH 13.5 % (11.6-13.7); WHITE BLOOD COUNT (AUTO) 8.4 K/uL (4.8-10.8)
[2018-02-16 06:42] LABS: ALBUMIN 2.8 g/dL (3.4-5.0); ANION GAP 7.8 (8-16); CARBON DIOXIDE 32.8 mmol/L (21-32); CREATININE 1.2 mg/dL (0.7-1.3); MAGNESIUM 1.9 mg/dL (1.8-2.4); PHOSPHORUS 3.5 mg/dL (2.5-4.9); POTASSIUM 3.6 mmol/L (3.5-5.1); TOTAL BILIRUBIN 0.4 mg/dL (0.0-1.0)
[2018-02-16 08:00] VITALS: BP 129/82
[2018-02-16] MEDS: LISINOPRIL 5 MG TAB PO SCH (08:33)
[2018-02-16] MEDS: ECOTRIN 81 MG TABEC PO SCH (08:33)
[2018-02-16] MEDS: LACTOBACILLUS RHAMNOSUS GG 1 EACH CAP PO SCH (08:33)
[2018-02-16] MEDS: CLOPIDOGREL 75 MG TAB PO SCH (08:33)
[2018-02-16] MEDS: ATORVASTATIN 20 MG TAB PO SCH (08:33)
[2018-02-16] MEDS: FUROSEMIDE 40 MG/4 ML VIAL IVP SCH ×2 (08:34→16:28)
[2018-02-16] MEDS: PANTOPRAZOLE 40 MG INJ VIAL IVP SCH (08:34)
[2018-02-16] MEDS: CARVEDILOL 3.125 MG TAB PO SCH ×2 (08:34→20:39)
[2018-02-16] MEDS: HYDROcodone/APAP 7.5/325 MG 1 TAB PO PRN (08:52)
[2018-02-16] MEDS ORDERED: FUROSEMIDE 20 MG/2 ML VIAL IVP SCH (10:32)
[2018-02-16] MEDS: MORPHINE SULFATE 4 MG/ML SYR IVP PRN ×2 (10:59→15:43)
[2018-02-16 12:00] VITALS: BP 118/81
[2018-02-16 16:00] VITALS: BP 120/77
[2018-02-16 19:50] VITALS: BP 108/72
[2018-02-17] VITALS: BP 103/72
[2018-02-17 04:00] VITALS: BP 128/74
[2018-02-17] MEDS: PIPER/TAZO 3.375GM/D5W PREMIX 50 ML IV SCH ×3 (04:40→20:48)
[2018-02-17 08:00] VITALS: BP 109/72
[2018-02-17] MEDS: ATORVASTATIN 20 MG TAB PO SCH (08:44)
[2018-02-17] MEDS: CARVEDILOL 3.125 MG TAB PO SCH ×2 (08:45→21:04)
[2018-02-17] MEDS: LACTOBACILLUS RHAMNOSUS GG 1 EACH CAP PO SCH (08:45)
[2018-02-17] MEDS: CLOPIDOGREL 75 MG TAB PO SCH (08:45)
[2018-02-17] MEDS: PANTOPRAZOLE 40 MG INJ VIAL IVP SCH (08:46)
[2018-02-17] MEDS: ECOTRIN 81 MG TABEC PO SCH (08:46)
[2018-02-17] MEDS: MORPHINE SULFATE 4 MG/ML SYR IVP PRN ×2 (08:47→16:43)
[2018-02-17] MEDS: FUROSEMIDE 40 MG/4 ML VIAL IVP SCH (09:00)
[2018-02-17] MEDS: LISINOPRIL 5 MG TAB PO SCH (09:00)
[2018-02-17 12:00] VITALS: BP 103/63
[2018-02-17] MEDS ORDERED: LISI-424 PO (12:33)
[2018-02-17] MEDS ORDERED: CARV3.122 PO (12:33)
[2018-02-17] MEDS ORDERED: ATOR20TA40 PO (12:33)
[2018-02-17] MEDS ORDERED: ACET-9529 PO (12:33)
[2018-02-17] MEDS ORDERED: LACT10CA PO (12:33)
[2018-02-17] MEDS ORDERED: ASPI-1173 PO (12:33)
[2018-02-17] MEDS ORDERED: DOCU-299 PO (12:34)
[2018-02-17] MEDS ORDERED: CLOP75TA26 PO (14:48)
[2018-02-17 16:00] VITALS: BP 113/72
[2018-02-17 20:00] VITALS: BP 109/75
[2018-02-18] VITALS: BP 110/68
[2018-02-18 04:00] VITALS: BP 109/73
[2018-02-18] MEDS: PIPER/TAZO 3.375GM/D5W PREMIX 50 ML IV SCH ×2 (04:32→13:07)
[2018-02-18 08:00] VITALS: BP 106/71
[2018-02-18] MEDS: PANTOPRAZOLE 40 MG INJ VIAL IVP SCH (08:57)
[2018-02-18] MEDS: CLOPIDOGREL 75 MG TAB PO SCH (08:57)
[2018-02-18] MEDS: ECOTRIN 81 MG TABEC PO SCH (08:58)
[2018-02-18] MEDS: CARVEDILOL 3.125 MG TAB PO SCH (08:58)
[2018-02-18] MEDS: ATORVASTATIN 20 MG TAB PO SCH (08:58)
[2018-02-18] MEDS: LACTOBACILLUS RHAMNOSUS GG 1 EACH CAP PO SCH (08:58)
[2018-02-18] MEDS: LISINOPRIL 5 MG TAB PO SCH (08:58)
[2018-02-18] MEDS ORDERED: FUROSEMIDE 40 MG TAB PO SCH (09:00)
[2018-02-18] MEDS: MORPHINE SULFATE 4 MG/ML SYR IVP PRN (09:12)
[2018-02-18 12:00] VITALS: BP 111/70
== END 2018-02-18 14:15 | disposition home or self-care (01) | DRG 190 ==
LOC: MED 02:19 → MIC 04:39 → MTU 02-14 13:01
PROVIDERS: ADMIT Family Medicine; ATTEND Family Medicine
PROC: 5A1945Z Respiratory Ventilation, 24-96 Consecutive Hours (ICD-10-PCS; principal; 2018-02-12)
PROC: 5A09357 Assistance with Respiratory Ventilation, Less than 24 Consecutive Hours, Continuous Positive Airway Pressure (ICD-10-PCS; 2018-02-12)
PROC: 0BH17EZ Insertion of Endotracheal Airway into Trachea, Via Natural or Artificial Opening (ICD-10-PCS; 2018-02-12)
PROC: 02HV33Z Insertion of Infusion Device into Superior Vena Cava, Percutaneous Approach (ICD-10-PCS; 2018-02-12)
PROC: B548ZZA Ultrasonography of Superior Vena Cava, Guidance (ICD-10-PCS; 2018-02-12)
DX: I21.4 Non-ST elevation (NSTEMI) myocardial infarction (principal); J96.21 Acute and chronic respiratory failure with hypoxia; N17.0 Acute kidney failure with tubular necrosis; J69.0 Pneumonitis due to inhalation of food and vomit; E43 Unspecified severe protein-calorie malnutrition; G92 Toxic encephalopathy; I50.43 Acute on chronic combined systolic (congestive) and diastolic (congestive) heart failure; R65.10 Systemic inflammatory response syndrome (SIRS) of non-infectious origin without acute organ dysfunction; I42.9 Cardiomyopathy, unspecified; T43.621A Poisoning by amphetamines, accidental (unintentional), initial encounter; F17.210 Nicotine dependence, cigarettes, uncomplicated; I11.0 Hypertensive heart disease with heart failure; E87.6 Hypokalemia; J44.1 Chronic obstructive pulmonary disease with (acute) exacerbation; E11.9 Type 2 diabetes mellitus without complications; I34.0 Nonrheumatic mitral (valve) insufficiency; N28.1 Cyst of kidney, acquired; I25.10 Atherosclerotic heart disease of native coronary artery without angina pectoris; F15.10 Other stimulant abuse, uncomplicated; R74.0 Nonspecific elevation of levels of transaminase and lactic acid dehydrogenase [LDH]; R79.89 Other specified abnormal findings of blood chemistry; Z91.19 Patient's noncompliance with other medical treatment and regimen; Z59.0 Homelessness; Z68.28 Body mass index [BMI] 28.0-28.9, adult; Y92.89 Other specified places as the place of occurrence of the external cause; Z71.41 Alcohol abuse counseling and surveillance of alcoholic; Z83.3 Family history of diabetes mellitus; Z82.49 Family history of ischemic heart disease and other diseases of the circulatory system; Z79.899 Other long term (current) drug therapy
CPT/HCPCS: 31500; 36415; 36600; 51702; 71045; 76700; 80048; 80053; 80305; 81001; 82150; 82803; 83605; 83690; 83735; 83880; 84100; 84436; 84443; 84479; 84484; 85025; 85610; 85730; 87040; 87070; 87081; 87086; 87205; 93005; 94003; 94640; 96374; 96375; 97110; 97116; 97140; 97530; 99291; C9113; J0696; J1170; J1642; J1644; J1940; J2060; J2250; J2270; J2543; J2704; J3480; J7030; J7060; J7512; J7613; J7620; Q0092

== ENCOUNTER 2018-05-16 00:09 | Inpatient (IN) | payer MEDICAID ==
[~2018-05-16] VITALS: Ht 188 cm; Wt 81.6 kg
[2018-05-16] VITALS (83 sets, daily range): BP systolic 87–196; BP diastolic 53–135
[~2018-05-16 00:09] MED LIST changes: +ACET-9529 PO; +ASPI-1173 PO; +ATOR20TA40 PO; +CARV3.122 PO; +CLOP75TA26 PO; +DOCU-299 PO; -IBUP-2213 PO; +LISI-424 PO; -SULF-58 PO; -UNKNOWN BP MED
--- NOTE | 2018-05-16 00:09 | NUR ---
Patient BIBA BLS, transferred to bed 3. RN evaluating patient at bedside.
--- NOTE | 2018-05-16 00:25 | NUR ---
PT BIBA C/O COUGH 2 HOURS AGO. BIALT RIB PAIN, WET COUGH, HX PNA X1 MTH AGO, HTN-NOT TAKING HIS MEDS, PT DENIES N/V/D; SKIN IS INTACT, FLUSH/WARM/DRY; AAOX4, PERRL, WITH EVEN AND STEADY GAIT; LUNGS WITH SLIGHT BL DIMINSHED NOTED, BREATHING LABORED; HR EVEN AND REGULAR, BL PERIPHERAL PULSES PRESENT; BS ACTIVE X4, NO TENDERNESS TO PALPATION. PT DENIES ANY FEVER, CP AT THIS TIME; PT STATES /10 PAIN AT THIS TIME; VSS; PATIENT POSITIONED FOR COMFORT; HOB ELEVATED; BEDRAILS UP X2; BED DOWN. Addendum: 05/16/18 at 0032 by WAGNER PAIN 02/05
[2018-05-16] MEDS ORDERED: NACL 0.9% 1,000 ML IV ONE (00:30)
[2018-05-16 01:05] LABS: BASOPHILS # (AUTO) 0.1 K/uL (0.00-0.22); BASOPHILS % (AUTO) 0.7 % (0.0-2.0); EOSINOPHILS # (AUTO) 0.1 K/uL (0-0.4); EOSINOPHILS % (AUTO) 0.6 % (0.0-4.0); HEMATOCRIT 50.3 % (36-52); HEMOGLOBIN 16.7 g/dL (12.0-18.0); LYMPHOCYTES # (AUTO) 1.6 K/uL (2.0-11.5); LYMPHOCYTES % (AUTO) 19.3 % (20.5-51.1); MEAN CORPUSCULAR HEMOGLOBIN 32 pg (27-31); MEAN CORPUSCULAR HGB CONC 33 g/dL (33-37); MEAN CORPUSCULAR VOLUME 96.7 fL (80-94); MONOCYTES # (AUTO) 0.4 K/uL (0.8-1.0); MONOCYTES % (AUTO) 4.9 % (1.7-9.3); NEUTROPHILS # (AUTO) 6.2 K/uL (1.8-7.7); NEUTROPHILS % (AUTO) 74.5 % (42.2-75.2); PLATELET COUNT (AUTO) 279 K/uL (140-450); RED CELL DISTRIBUTION WIDTH 14.8 % (11.6-13.7); WHITE BLOOD COUNT (AUTO) 8.3 K/uL (4.8-10.8)
[2018-05-16] MEDS ORDERED: cloNIDine 0.1 MG TAB PO ONE (01:15)
[2018-05-16 01:27] LABS: ALBUMIN 3.6 g/dL (3.4-5.0); ANION GAP 13.8 (8-16); CARBON DIOXIDE 25.4 mmol/L (21-32); CREATININE 0.9 mg/dL (0.7-1.3); POTASSIUM 3.2 mmol/L (3.5-5.1); TOTAL BILIRUBIN 0.4 mg/dL (0.0-1.0)
[2018-05-16 01:31] LABS: PROTHROMBIN TIME 10.8 secs (10.8-13.4)
[2018-05-16] MEDS ORDERED: ACETAMINOPHEN 325 MG TAB PO PRN (01:40)
[2018-05-16] MEDS ORDERED: ONDANSETRON 4 MG/2 ML VIAL IVP PRN (01:40)
[2018-05-16] MEDS ORDERED: ENOXAPARIN 100 MG/ML SYR SUBQ ONE (01:45)
[2018-05-16] MEDS ORDERED: PIPERACILLIN/TAZOBACTAM 3.375 GM in DEXTROSE 5% 50 ML IV ONE (01:45)
[2018-05-16] MEDS ORDERED: NITROGLYCERIN 0.4 MG TAB SL PRN (01:50)
[2018-05-16] MEDS ORDERED: ALBUTEROL SULFATE/IPRATROPIU 3 ML SOL IH PRN (01:50)
--- NOTE | 2018-05-16 01:58 | NUR ---
PT NOTED WITH INCREASED WOB, DIAPHORETIC, AND VERY RESTLESS. SPO2 LOW 80'S, TACHY AT 130. PT PUT ON NRB 15L, ER MD CALLED AT BEDSIDE.
--- NOTE | 2018-05-16 02:01 | NUR ---
Dr. Fair, RT evaluating patient at bedside.
[2018-05-16] MEDS ORDERED: NITROGLYCERIN 2% 1 GM PKT TP ONE ×4 (02:02→03:35)
--- NOTE | 2018-05-16 02:03 | NUR ---
BIPAP initiated by respiratory therapist.
[2018-05-16] MEDS ORDERED: FUROSEMIDE 40 MG/4 ML VIAL IVP ONE ×2 (02:09→03:35)
--- NOTE | 2018-05-16 02:23 | NUR ---
PT CONTINUES TO BE RESTLESS WITH BIPAP, SKIN IS DUSKY AND CLAMMY, SPO2 AT LOW 80'S, TACHY 130. ER MD AT BEDSIDE
--- NOTE | 2018-05-16 02:25 | NUR ---
Dr. Fair, RT and RN at bedside for endotracheal intubation.
--- NOTE | 2018-05-16 02:25 | NUR ---
RSI BY DR ROBERT. 0225 ORDER TO GIVE MAICO 1MG IVP 0227 ORDER TO GIVE SUCC 100MG IVP [address] ROBERT, 7.5 ETT, 25 TAPED AT LIP
[2018-05-16 02:34] LABS: CHOL/HDL RATIO 2.5 (1-4.5); FREE T4 (FREE THYROXINE) 0.93 ng/dL (0.76-1.46); PHOSPHORUS 3.7 mg/dL (2.5-4.9); THYROID STIMULATING HORMONE 3.11 uIU/mL (0.34-3.74)
[2018-05-16] MEDS ORDERED: PROPOFOL 1000 MG/100 ML PREMIX 100 ML IV ONE ×2 (02:38→04:05)
--- NOTE | 2018-05-16 02:41 | NUR ---
0232 INTUBATED PT WITH 7.5CM TUBE AT 25LIP. PT SXNED LG [facility] OF [employer]
--- NOTE | 2018-05-16 02:43 | NUR ---
# 14 FR NG tube placed to LEFT nare. Placement checked by auscultation of instilled air into stomach and aspiration of gastric contents. Tubing taped in place to prevent dislodging.
--- NOTE | 2018-05-16 02:45 | NUR ---
lay out technician at bedside for confirmation of NG tube and ETT placement via CXR.
[2018-05-16] MEDS ORDERED: KETAMINE 500 MG/5 ML VIAL IVP ONE (02:55)
--- NOTE | 2018-05-16 03:01 | NUR ---
Patient will be admitted to care of [facility]. Admited to ICU. Will go to room 7. Belongings list completed. Report to GABBIE GRECO.
[2018-05-16] MEDS ORDERED: KETAMINE 500 MG/5 ML VIAL ONE (03:02)
--- NOTE | 2018-05-16 03:05 | NUR ---
PATIENT TRANSFERRED FROM ED TO ICU BED 7, PATIENT SEDATED WITH PROPOFOL DRIP 50MCG/KG/MIN, ETT TO VENT WITH SETTING A/C MODE RATE 12, FIO2 100%, VT 550, PEEP 5. NGT TO LEFT NARES. ST ON THE MONITOR. HR 138, BP 167/123, RR33, 02 SAT 94% NOTED, PERIPHERAL LINE TO LEFT HAND 20G WITH PROPOFOL DRIP. F/C IN PLACE WITH BLEEDING FROM PATIENT PENIS NOTED. AWARE. SKIN IS INTACT, WARM TO TOUCH. WILL CONTINUE TO MONITOR.
--- NOTE | 2018-05-16 03:05 | NUR ---
0235 PROPOFOL DRIP STARTED AT 10MCG/KG/MIN, RASS +3 0240 PT CONTINUES TO BE RESTLESS, RASS +3, PROPOFOL INCREASED TO 15MCG/KG/MIN 0245 PT CONTINUES WITH RASS +3, PROPOFOL INCREASED TO 20MCG/KG/MIN 0250 PT CONTINUES WITH RASS +3, PROPOFOL INCREASED TO 25MCG/KG/MIN 0255 PT CONTINUES WITH RASS +3, PROPOFOL INCREASED TO 30MCG/KG/MIN 0300 PT CONTINUES WITH RASS +3, PROPOFOL INCREASED TO 35MCG/KG/MIN
--- NOTE | 2018-05-16 03:10 | NUR ---
0300 TRANSFERED PATIENT TO ICU BED 7 AND PLACED BACK ON THE VENT AC 12 VT 550 PEEP AT 100% FIO2.
[2018-05-16] MEDS ORDERED: KCL 20 MEQ/WATER INJ PREMIX 200 ML IV ONE (03:30)
[2018-05-16] MEDS ORDERED: PROPOFOL 200 MG/20 ML VIAL IV ONE ×2 (03:35→04:00)
[2018-05-16] MEDS ORDERED: SUCCINYLCHOLINE CHLORIDE 200 MG/10 ML VIAL IVP ONE (03:35)
[2018-05-16] MEDS ORDERED: ROCURONIUM 50 MG/5 ML VIAL IV ONE (03:35)
[2018-05-16 03:57] LABS: APPEARANCE,URINE CLEAR (CLEAR); BILIRUBIN,URINE NEGATIVE (NEGATIVE); BLOOD, URINE NEGATIVE (NEGATIVE); COLOR,URINE YELLOW (YELLOW); LEUKOCYTE ESTERASE ,URINE NEGATIVE (NEGATIVE); NITRITE, URINE NEGATIVE (NEGATIVE); UGLUCOSE NEGATIVE (NEGATIVE)
[2018-05-16] MEDS ORDERED: LORazepam 2 MG/ML VIAL IVP ONE (04:00)
--- NOTE | 2018-05-16 04:00 | NUR ---
NOTIFIED TO THAT PATIENT TRYING TO PULL ET TUBE OUT. RECEIVED SOFT WRIST RESTRAINT ORDER. CARRIED OUT.
[2018-05-16 04:06] LABS: RBC,URINE 0-5 (RARE) /HPF (0-5); WBC,URINE 0-5 (RARE) /HPF (0-5)
--- NOTE | 2018-05-16 04:30 | NUR ---
ADMINISTERED ATIVAN DUE TO PATIENT AGITATED. DR. HERNANDEZ AT BEDSIDE WAITING FOR US TECH FOR CENTRAL LINE INSERTION.
[2018-05-16 04:31] LABS: BARBITURATE, URINE NEG. ng/ml (NEG <=200); BENZODIAZEPINE, URINE NEG. ng/mL (NEG <=200); CANNABINOID, URINE POS. ng/mL (NEG <=50); COCAINE, URINE NEG. ng/mL (NEG <=300); OPIATE, URINE NEG. ng/mL (NEG <=2000); PHENCYCLIDINE SCREEN,URINE NEG. ng/mL (NEG <=25)
[2018-05-16] MEDS: PROPOFOL 1000 MG/100 ML PREMIX 100 ML IV PRN ×5 (05:01→21:37)
--- NOTE | 2018-05-16 05:24 | NUR ---
UNABLE TO GET GOOD SPUTUM SAMPLE. SECRETIONS TO WATERY
[2018-05-16] MEDS: ALBUTEROL SULFATE/IPRATROPIU 3 ML SOL IH SCH ×3 (06:00→18:53)
--- NOTE | 2018-05-16 06:50 | NUR ---
REC'D PT ON CARESCAPE VENT SETTINGS AC12 VT 550 PEEP 5 FIO2 100% ALARMS ON AND AUDIBLE AND AMBU BAG IS HOB VENT IS PLUGGED INTO RED OUTLET, NO HHN GIVEN AT THIS TIME PT IS SLEEPING WITH NO SIGNS OF DISTRESS NOTED SXN PT SMALL AMT OF CREAM COLOR SECRETIONS, B\S ARE COARSE BILATERALLY, PT IS ORALLY INTUBATED WITH 7.5 ET TUBE SECURED WITH ANCHOR FAST AT 25 CM AT MIDLINE AT LIPS AND SKIN INTEGRITY IS INTACT, DECREASE FIO2 TO 80% AND FLOW TO 60 PT IS SEDATED AND RESTING
--- NOTE | 2018-05-16 07:10 | NUR ---
SPOKE WITH ABOUT NURSE COULD NOT GIVE ZOSYN AND POTASSIUM CHLORIDE ON TIME ORDERED BECAUSE OF CENTRAL LINE INSERTION. DR. SHARMA STATED THAT OK GIVEN AFTER GET CHEST X-RAY RESULT FOR CENTRAL LINE PLACEMENT.
--- NOTE | 2018-05-16 07:30 | NUR ---
RECEIVED PT FROM PM NURSE, PT ETT TO VENT WITH FIO2 80 %, TV 550, RR 12, AND PEEP 5. NO S/S OF RESPIRATORY DISTRESS NOTED. PT ON SEDATION PROPOFOL 45 MCG/KG/MIN, RASS -2. BEDSIDE MONITOR SHOWS SR. PT ON RESTRAIN, BLOOD CIRCULATION CHECKED. PT HAS RIGHT IJ TLC, INTACT AND PATENT. PT ALSO HAS F/C WITH SMALL AMOUNT OF URINE NOTED. PT FEET AND HANDS ARE COOL TO TOUCH BUT LEGS AND ARM ARE WARM. PT SWEATING ON FOREHEAD. HOB ELEVATED WITH LOW BED POSITION, WILL CONTINUE TO MONITOR.
--- NOTE | 2018-05-16 07:36 | NUR ---
PATIENT HAS BEEN SCREENED AND CATEGORIZED HIGH NUTRITION RISK. PATIENT WILL BE SEEN WITHIN 1-2 DAYS OF ADMISSION. 05/16/18 - 05/17/18 MELLISA GIBSON MBA, RD
[2018-05-16] MEDS: PIPER/TAZO 3.375GM/D5W PREMIX 50 ML IV SCH ×3 (08:13→20:19)
[2018-05-16] MEDS: LISINOPRIL 5 MG TAB NG SCH (08:14)
[2018-05-16] MEDS: ASPIRIN 81 MG TAB.CHEW NG SCH (08:14)
[2018-05-16] MEDS: DOCUSATE SODIUM 100 MG GELCAP PO SCH ×2 (08:15→20:19)
[2018-05-16] MEDS: METOPROLOL 25 MG TAB NG SCH ×2 (08:15→20:20)
--- NOTE | 2018-05-16 08:33 | NUR ---
VENT CHECK, PT IS RESTING WITH NO SIGNS OF DISTRESS NOTED AT THIS TIME AIRWAY IS PATENT
[2018-05-16] MEDS ORDERED: FUROSEMIDE 40 MG/4 ML VIAL IVP SCH (09:00)
[2018-05-16] MEDS ORDERED: LISINOPRIL 5 MG TAB PO SCH (09:00)
[2018-05-16] MEDS ORDERED: METOPROLOL 25 MG TAB PO SCH (09:00)
[2018-05-16] MEDS ORDERED: ASPIRIN 81 MG TAB.CHEW PO SCH (09:00)
--- NOTE | 2018-05-16 09:15 | NUR ---
SEEN BY DR. ESQUEDA HE DISCUS PT. CONDITION WITH DR. SHARMA.
[2018-05-16 09:32] LABS: BASOPHILS % (AUTO) 0.1 % (0.0-2.0); EOSINOPHILS % (AUTO) 0.1 % (0.0-4.0); HEMATOCRIT 52.7 % (36-52); HEMOGLOBIN 17.5 g/dL (12.0-18.0); LYMPHOCYTES # (AUTO) 0.8 K/uL (2.0-11.5); LYMPHOCYTES % (AUTO) 7.4 % (20.5-51.1); MEAN CORPUSCULAR HEMOGLOBIN 32 pg (27-31); MEAN CORPUSCULAR HGB CONC 33 g/dL (33-37); MEAN CORPUSCULAR VOLUME 96.5 fL (80-94); MONOCYTES # (AUTO) 0.8 K/uL (0.8-1.0); MONOCYTES % (AUTO) 7.3 % (1.7-9.3); NEUTROPHILS # (AUTO) 9.6 K/uL (1.8-7.7); NEUTROPHILS % (AUTO) 85.1 % (42.2-75.2); PLATELET COUNT (AUTO) 251 K/uL (140-450); RED BLOOD CELL COUNT(AUTO) 5.46 MIL/uL (4.20-6.10); RED CELL DISTRIBUTION WIDTH 14.6 % (11.6-13.7); WHITE BLOOD COUNT (AUTO) 11.3 K/uL (4.8-10.8)
[2018-05-16] MEDS ORDERED: HEPARIN PER PHARMACY MC PRN (09:55)
[2018-05-16] MEDS ORDERED: hePARIN / DEXT 5% PREMIX 250 ML IV SCH (09:55)
[2018-05-16] MEDS ORDERED: CARVEDILOL 6.25 MG TAB PO SCH (10:00)
--- NOTE | 2018-05-16 10:00 | NUR ---
SEEN BY DR. MONGE AT BEDSIDE. ORDER RECIEVED.
[2018-05-16 10:02] LABS: CREATININE 1.2 mg/dL (0.7-1.3)
--- NOTE | 2018-05-16 10:19 | NUR ---
VENT CHECK, SXN PT SMALL AMT OF BLOOD TINT SECRETIONS, PT IS HAVING ECHO DONE Addendum: 05/16/18 at 1025 by Lisa Anguiano RT DECREASED FIO2 TO 60% AND FANNIE KAPLAN
--- NOTE | 2018-05-16 10:25 | NUR ---
LAB CALLED RESULT TROPONIN 5.7. LACTIC ACID 2.7 . REPORTED, TO DR. SHARMA.
--- NOTE | 2018-05-16 11:20 | NUR ---
05/16/18 RD INITIAL ASSESSMENT COMPLETED PLEASE REFER TO NUTRITION ASSESSMENT UNDER CARE ACTIVITY FOR ESTIMATED NUTRITIONAL NEEDS. RD RECOMMENDATIONS: 1- RECOMMEND CONTINUE NPO DIET. 2- WHEN MEDICALLY CLEARED FOR NUTRITIONAL SUPPORT, RECOMMEND TF TWO CAROLINE HN @ 55 MLS/HR (2640 KCALS, 110G PROTEIN) - SUFFICIENT TO MEET 100% ESTIMATED NEEDS. 3- WHEN MEDICALLY CLEARED FOR TF, START RATE AT 25MLS/HR AND INCREASE TOLERATED BY 10MLS/HR Q8HRS TO REACH GOAL OF 55MLS/HR. 4- RD F/U 2-3 DAYS; HIGH RISK. MELLISA GIBSON MBA, RD
[2018-05-16] MEDS: hePARIN / DEXT 5% PREMIX 250 ML IV SCH (12:10)
--- NOTE | 2018-05-16 13:09 | NUR ---
VENT CHECK, IL\ TX GIVEN WITH DUONEB 3ML WITH NO ADVERSE REACTION POST TX B\S ARE COARSE AND PT IS RESTING NO SNX NEEDED
--- NOTE | 2018-05-16 15:15 | NUR ---
VENT CHECK, AIRWAY IS PATENT AND DECREASED FIO2 TO 50% RN ZULEMA NOTIFIED
--- NOTE | 2018-05-16 16:00 | NUR ---
ORAL CARE GIVEN, PINK FROTHY SECRETION NOTED WHILE DOING ORAL CARE, NOTIFIED DR. SHARMA.
--- NOTE | 2018-05-16 17:02 | NUR ---
VENT CHECK, SXN PT SMALL AMT OF SECRETIONS, RN ZULEMA AT BEDSIDE DECREASED FIO2 TO 50%
--- NOTE | 2018-05-16 19:20 | NUR ---
RECEIVED BEDSIDE REPORT FROM MORNING NURSE, PATIENT SEDATED RASS -2, WITH PROPOFOL DRIP 40MCG/KG/MIN, ETT TO VENT WITH SETTING A/C MODE RATE 12, FIO2 35%, VT 550, PEEP 5. NGT TO LEFT NARES, PLACEMENT CHECKED. SR ON THE MONITOR. BILATERAL LUNG SOUND DIMINISHED. CENTRAL LINE TP RIGHT IJ, TRIPLE LUMEN, INTACT AND PATENT WITH PROPOFOL DRIP, HEPARIN DRIP 960 UNITS/HR AND NS 50ML/HR NOTED. SALINE LOCK TO LEFT HAND 20G. PATIENT ON SOFT WRISTS RESTRAINTS, CHECKED PLACEMENT AND CIRCULATION. F/C IN PLACE CLOUDY YELLOW URINE NOTED. PATIENT'S SKIN IS INTACT, WARM TO TOUCH. SCD IN PLACE. HOB ELEVATED 30 DEGREE, BED IN LOW POSITION WILL CONTINUE TO MONITOR.
[2018-05-16] MEDS: NACL 0.9% 1,000 ML IV SCH (19:30)
[2018-05-16] MEDS ORDERED: ATORVASTATIN 20 MG TAB PO SCH (21:00)
--- NOTE | 2018-05-16 21:00 | NUR ---
ADMINISTERED SCHEDULED MEDICATIONS ORDERED, PATIENT SEDATED RASS -2 WITH PROPOFOL. NO ACUTE DISTRESS NOTED. WILL CONTINUE TO MONITOR.
[2018-05-16] MEDS: ATORVASTATIN 20 MG TAB NG SCH (21:39)
[2018-05-17] VITALS (107 sets, daily range): BP systolic 95–167; BP diastolic 54–104
--- NOTE | 2018-05-17 | NUR ---
PATIENT TOLERATED WELL WITH VENTILATOR. SEDATED WITH PROPOFOL DRIP. ON SOFT WRIST RESTRAINT, CHECKED CIRCULATION AND RELEASED 15MINS. WILL CONTINUE TO MONITOR.
--- NOTE | 2018-05-17 01:15 | NUR ---
SUBSTATION ELECTRICIAN HERE FOR PATIENT BLOOD FOR APTT FOR HEPARIN PROTOCOL. WILL FOLLOW THE RESULT.
[2018-05-17] MEDS: NACL 0.9% 1,000 ML IV SCH ×2 (01:18→20:04)
[2018-05-17] MEDS: PROPOFOL 1000 MG/100 ML PREMIX 100 ML IV PRN ×7 (01:37→23:45)
--- NOTE | 2018-05-17 02:30 | NUR ---
RECEIVED APTT RESULT 58.6 NOTED. IN THERAPEUTIC, NO NEED TO CHANGE PER PROTOCOL.
--- NOTE | 2018-05-17 04:30 | NUR ---
PATIENT SEDATED WITH PROPOFOL DRIP RASS -2, TOLERATED WELL WITH VENT. NO ACUTE DISTRESS NOTED. WILL CONTINUE TO MONITOR.
[2018-05-17] MEDS: PIPER/TAZO 3.375GM/D5W PREMIX 50 ML IV SCH ×3 (04:37→20:03)
[2018-05-17 05:34] LABS: BASOPHILS % (AUTO) 0.1 % (0.0-2.0); EOSINOPHILS # (AUTO) 0.1 K/uL (0-0.4); EOSINOPHILS % (AUTO) 1.2 % (0.0-4.0); HEMATOCRIT 45.1 % (36-52); LYMPHOCYTES # (AUTO) 1.7 K/uL (2.0-11.5); LYMPHOCYTES % (AUTO) 22.3 % (20.5-51.1); MEAN CORPUSCULAR HEMOGLOBIN 32 pg (27-31); MEAN CORPUSCULAR HGB CONC 33 g/dL (33-37); MONOCYTES # (AUTO) 0.4 K/uL (0.8-1.0); MONOCYTES % (AUTO) 5.7 % (1.7-9.3); NEUTROPHILS # (AUTO) 5.3 K/uL (1.8-7.7); NEUTROPHILS % (AUTO) 70.7 % (42.2-75.2); PLATELET COUNT (AUTO) 195 K/uL (140-450); RED BLOOD CELL COUNT(AUTO) 4.65 MIL/uL (4.20-6.10); RED CELL DISTRIBUTION WIDTH 15.1 % (11.6-13.7); WHITE BLOOD COUNT (AUTO) 7.5 K/uL (4.8-10.8)
[2018-05-17 06:01] LABS: ANION GAP 9.9 (8-16); CARBON DIOXIDE 29.2 mmol/L (21-32); CREATININE 1.1 mg/dL (0.7-1.3); POTASSIUM 3.1 mmol/L (3.5-5.1)
[2018-05-17 06:05] LABS: MAGNESIUM 1.7 mg/dL (1.8-2.4); PHOSPHORUS 2.5 mg/dL (2.5-4.9)
--- NOTE | 2018-05-17 06:20 | NUR ---
HERE TO SEE THE PATIENT. PATIENT SEDATED, NO ACUTE DISTRESS NOTED. WILL FOLLOW THE ORDER.
--- NOTE | 2018-05-17 07:20 | NUR ---
RECEIVED REPORT FROM EROSION CONTROL SPECIALIST NURSE. PT SEDATED ON 50MCG OF PROPOFOL. 1120 HEPARIN RUNNING. PATIENT RESPONSIVE TO LIGHT PAIN. ROLANDO -2. RIJ FLUSHED PATENT AND ASYMPTOMATIC. NG TUBE IN R NARE PLACEMENT VERIFIED. LUNG SOUND DIMINISHED BILATERALLY. BOWEL SOUNDS HYPOACTIVE. MORAN CATH IN PLACE SOME DRIED BLOOD NOTED AT MORAN INSERTION SIGHT. SKIN WARM DRY AND INTACT. ETT SIZE 7.5, 25 AT THE TEETH. VENT SETTINGS FiO2 30% TV 550 RATE 12 [address] SCD'S IN PLACE. WILL CONTINUE TO MONITOR PATIENT.
[2018-05-17] MEDS: ALBUTEROL SULFATE/IPRATROPIU 3 ML SOL IH SCH ×3 (07:37→19:14)
--- NOTE | 2018-05-17 07:37 | NUR ---
RECEIVED ON A ScopelySCAPE R860 VENTILATOR PLUGGED INTO RED OUTLET TOLERATING WELL WITHOUT ADVERSE REACTIONS NOTED TO AN ENDOTRACHEAL TUBE #7.5 SECURED AT 25cm WITH AN ANCHOR FAST CUFF PRESSURE CHECKED NOTED AMBU BAG AT BEDSIDE RESTING WELL BREATH SOUNDS CLEAR BILATERAL WITH GOOD CHEST RISE AND AERATION THROUGHOUT LUNG ANDREWS AIRWAY PATENT
[2018-05-17] MEDS: LISINOPRIL 5 MG TAB NG SCH (08:28)
[2018-05-17] MEDS: METOPROLOL 25 MG TAB NG SCH ×2 (08:28→20:03)
[2018-05-17] MEDS: DOCUSATE SODIUM 100 MG GELCAP PO SCH ×2 (08:28→20:04)
[2018-05-17] MEDS: ASPIRIN 81 MG TAB.CHEW NG SCH (08:29)
[2018-05-17] MEDS: hePARIN / DEXT 5% PREMIX 250 ML IV SCH (08:39)
--- NOTE | 2018-05-17 08:45 | NUR ---
LAB AT BEDSIDE FOR PTT DRAW. DID NOT USE CENTRAL LINE AT THIS TIME. Addendum: 05/18/18 at 0308 by Yandel Mojica RN WRONG TIME. 2044
[2018-05-17] MEDS: CARVEDILOL 6.25 MG TAB PO SCH (08:50)
--- NOTE | 2018-05-17 09:48 | NUR ---
SEDATED STABLE BREATH SOUNDS CLEAR BILATERAL GOOD CHEST RISE SATURATION 98% ON FIO2 OF 30% TITRATED FIO2 TO 28% RAFA/RN NOTIFIED
--- NOTE | 2018-05-17 09:50 | NUR ---
RT AT BEDSIDE. CHANGED FIO2 TO 28%. WILL CONTINUE TO MONITOR
[2018-05-17] MEDS ORDERED: PROBIOTIC SCREEN 1 EA MISC MC PRN (10:40)
--- NOTE | 2018-05-17 11:41 | NUR ---
STABLE NO RESPIRATORY DISTRESS NOTED GOOD CHEST RISE
--- NOTE | 2018-05-17 13:11 | NUR ---
NO APPARENT SOB NOTED AT THIS TIME GOOD CHEST RISE AIRWAY PATENT TOLERATING VENTILATOR SUPPORT WELL WITHOUT INCIDENT
--- NOTE | 2018-05-17 15:45 | NUR ---
PTT CAME BACK AT 49.2. NO CHANGE NEEDED. WILL CONTINUE TO MONITOR
--- NOTE | 2018-05-17 15:55 | NUR ---
IRRITABLE RAFA/RN AT BEDSIDE DEEP TRACHEAL SUCTION FOR MODERATE THICK YELLOW/GREEN SECRETIONS AIRWAY PATENT
--- NOTE | 2018-05-17 17:42 | NUR ---
NO DISTRESS NOTED GOOD CHEST RISE DEEP TRACHEAL SUCTION FOR SMALL TJI YELLOW SECRETIONS AIRWAY PATENT Addendum: 05/17/18 at 1751 by Fernando Orourke RT THJ = THIN
--- NOTE | 2018-05-17 19:11 | NUR ---
GAVE REPORT TO PORTILLO FOR CONTINUITY OF CARE. PATIENT STABLE.
--- NOTE | 2018-05-17 19:18 | NUR ---
RECEIVED REPORT FROM AM SHIFT. PT SEDATED. ETT TO VENT. ETT 7.5 TAPED AT 25. SR ON MONITOR. BS HYPOACTIVE X 4 QUADRANTS. NGT TO L NARE. F/C PATENT. URINE REHAN. RIGHT IJ CENTRAL LINE PATENT. ON PROPOFOL DRIP 50 MCG/KG/MIN ON HEPARIN DRIP 1280. SCDS BILATERALLY. NON BEHAVIORAL RESTRAINTS BUE. NO SIGNS OF ACUTE DISTRESS AT THIS TIME. CALL LIGHT WITHIN REACH. BED IN LOWEST. WILL CONTINUE TO MONITOR.
--- NOTE | 2018-05-17 19:24 | NUR ---
Received pt stable on vent support at documented settings, suctioned small amounts of thick abernathy secretions, hhn tx given, tolerated well, no resp distres or SOB noted at this time, 7.5 ETT secured at 25 cm at the lip, alarms set and audible, ambu bag at bedside, vent plugged into red outlet, pulse ox on, will cont to monitor.
[2018-05-17] MEDS: ATORVASTATIN 20 MG TAB NG SCH (20:03)
[2018-05-17] MEDS ORDERED: KCL 20 MEQ/WATER INJ PREMIX 200 ML IV SCH (20:30)
--- NOTE | 2018-05-17 20:45 | NUR ---
LAB AT BEDSIDE FOR PTT DRAW. DID NOT USE CENTRAL LINE AT THIS TIME.
--- NOTE | 2018-05-17 21:45 | NUR ---
LAB RESULT OF PTT 44.7. BOLUS OF 2,400 UNITS GIVEN AND HEPARIN DRIP INCREASED TO 1440 UNITS PER PROTOCOL. WILL CONTINUE TO MONITOR
--- NOTE | 2018-05-17 22:15 | NUR ---
PT REPOSITIONED AT THIS TIME. NO SIGNS OF ACUTE DISTRESS NOTED. RESTRAINTS REMOVED PER PROTOCOL. WILL REAPPLY IN 15 MIN.
--- NOTE | 2018-05-17 23:08 | NUR ---
RT AT BEDSIDE AT THIS TIME
--- NOTE | 2018-05-17 23:43 | NUR ---
NEW PROPOFOL BOTTLE HUNG AT 50MCG/KG/MIN. PT CONTINUES TO ATTEMPT AND PULL OUT TUBINGS. WILL CONTINUE TO MONITOR AND MAINTAIN RASS SCORE -2
[2018-05-18] VITALS (70 sets, daily range): BP systolic 106–149; BP diastolic 56–93
--- NOTE | 2018-05-18 00:14 | NUR ---
VAP ORAL CARE PROVIDED. PT REPOSITIONED. NO SIGNS OF ACUTE DISTRESS NOTED.
--- NOTE | 2018-05-18 02:15 | NUR ---
PT REPOSITIONED AT THIS TIME. NEW BOTTLE OF PROPOFOL HUNG. TUBING CHANGED. 50 MCG/KG/MIN FOR RASS -2. MORAN CARE PROVIDED AT THIS TIME. PERFORMED VAP ORAL CARE VIA KIT. NO SIGNS OF ACUTE DISTRESS NOTED. WILL CONTINUE TO MONITOR
[2018-05-18] MEDS: PROPOFOL 1000 MG/100 ML PREMIX 100 ML IV PRN ×3 (02:43→10:33)
--- NOTE | 2018-05-18 03:05 | NUR ---
RT AT BEDSIDE AT THIS TIME. NO SIGNS OF ACUTE DISTRESS NOTED. REMOVED RESTRAINTS AND ASSESS SKIN AND CIRCULATION AT THIS TIME.
--- NOTE | 2018-05-18 03:52 | NUR ---
LAB AT BEDSIDE TO DRAW PTT. WILL CONTINUE TO FOLLOW UP RESULTS.
[2018-05-18] MEDS: PIPER/TAZO 3.375GM/D5W PREMIX 50 ML IV SCH ×3 (04:00→20:25)
[2018-05-18] MEDS: hePARIN / DEXT 5% PREMIX 250 ML IV SCH (05:23)
[2018-05-18 06:18] LABS: BASOPHILS % (AUTO) 0.3 % (0.0-2.0); EOSINOPHILS # (AUTO) 0.1 K/uL (0-0.4); EOSINOPHILS % (AUTO) 2.5 % (0.0-4.0); HEMATOCRIT 43.5 % (36-52); HEMOGLOBIN 14.2 g/dL (12.0-18.0); LYMPHOCYTES # (AUTO) 1.2 K/uL (2.0-11.5); MEAN CORPUSCULAR HEMOGLOBIN 32 pg (27-31); MEAN CORPUSCULAR HGB CONC 33 g/dL (33-37); MEAN CORPUSCULAR VOLUME 97.9 fL (80-94); MONOCYTES # (AUTO) 0.3 K/uL (0.8-1.0); MONOCYTES % (AUTO) 6.3 % (1.7-9.3); NEUTROPHILS # (AUTO) 3.8 K/uL (1.8-7.7); NEUTROPHILS % (AUTO) 68.9 % (42.2-75.2); PLATELET COUNT (AUTO) 168 K/uL (140-450); RED BLOOD CELL COUNT(AUTO) 4.44 MIL/uL (4.20-6.10); RED CELL DISTRIBUTION WIDTH 14.6 % (11.6-13.7); WHITE BLOOD COUNT (AUTO) 5.5 K/uL (4.8-10.8)
--- NOTE | 2018-05-18 06:33 | NUR ---
DR. JENNINGS AT BEDSIDE TO EVALUATE PT. UPDATED ON PATIENTS CONDITION. WILL CONTINUE TO FOLLOWUP ANY ADDITIONAL ORDERS.
[2018-05-18 06:45] LABS: ANION GAP 11.5 (8-16); CREATININE 0.9 mg/dL (0.7-1.3); POTASSIUM 3.5 mmol/L (3.5-5.1)
[2018-05-18 06:53] LABS: MAGNESIUM 1.9 mg/dL (1.8-2.4); PHOSPHORUS 2.6 mg/dL (2.5-4.9)
--- NOTE | 2018-05-18 07:08 | NUR ---
ENDORSED CARE TO INCOMING SHIFT. PT IN STABLE CONDITION AT THIS TIME. BED IN LOWEST POSITION. SIDE RAILS UP X4.
--- NOTE | 2018-05-18 07:28 | NUR ---
PT IS SEDATED ON PROPOFOL 50MCG, RASS -2. PT RETRACTS FROM LIGHT PAIN. PT'S PUPILS ARE SLUGGISH. ETT TO VENT; MEASURING 25 AT THE TEETH LINE. PT HAS NG TUBE; LEFT NARE; 15ML RESIDUAL OF CLEAR BILE. PT IS ON BOTTOM WHEELER; NORMAL SINUS RHYTHM; S1S2 HEARD. LUNGS ARE BILATERALLY DIMINISHED IN LOWER LOBES; RIGHT UPPER LOBES HAS COARSE SOUNDS PRESENT; LEFT IS CLEAR. PT'S ABD IS SOFT, ROUND AND NON-TENDER; BOWEL SOUNDS ARE ACTIVE IN ALL 4 QUADRANTS. PT HAS A MORAN CATHETER WITH DARK REHAN URINE IN COLLECTION BAG. PT'S SKIN IS INTACT. PT HAS RIGHT IJ; ALL 3 PORTS FLUSH, ASYMPTOMATIC, DRESSING DRY AND IN TACT. PT IS ON HEPARIN DRIP, PROPOFOL, AND NS. VAP ORAL CARE PROVIDED. HOB ELEVATED 30 DEG. BED IS LOCKED AND IN LOWEST POSITION WITH ALARM ON.CALL LIGHT IS WITHIN REACH.
[2018-05-18] MEDS: ALBUTEROL SULFATE/IPRATROPIU 3 ML SOL IH SCH ×3 (07:30→19:00)
--- NOTE | 2018-05-18 07:31 | NUR ---
PATIENT RECEIVED ON VENT SETTINGS AC/VC 550 RATE 12 +5 FIO2 28%. ET TUBE SIZE 7.5 SECURED AT 25CM AT THE LIP BY AN ANCHORFAST. ET TUBE IS AT ORAL CENTER AND OBSERVED NO LIP IRRITATION OR BREAKDOWN. COMPLETED INLINE DUONEB TREATMENT THAT PATIENT TOLERATED WELL WITH NO ADVERSE EFFECTS. PATIENT IS SEDATED BUT APPEARS COMFORTABLE WITH NO RESPIRATORY DISTRESS. B/S: COARSE IN THE UPPER LOBES AND DIMINISHED IN THE BASES. SUCTIONED PATIENT AND RECEIVED SCANT TO ALMOST NO RETURN OF THIN WHITE SECRETIONS. ALARMS AND SETTINGS ARE VERIFIED. AMBU BAG AT BEDSIDE. VENT BRAKES ARE ON AND PLUGGED INTO RED OUTLET.
[2018-05-18] MEDS: LACTOBACILLUS RHAMNOSUS GG 1 EACH CAP PO SCH (08:31)
[2018-05-18] MEDS: DOCUSATE SODIUM 100 MG GELCAP PO SCH ×2 (08:32→20:25)
[2018-05-18] MEDS: METOPROLOL 25 MG TAB NG SCH (08:32)
[2018-05-18] MEDS: ASPIRIN 81 MG TAB.CHEW NG SCH (08:32)
[2018-05-18] MEDS: LISINOPRIL 5 MG TAB NG SCH (08:32)
[2018-05-18] MEDS: CARVEDILOL 6.25 MG TAB PO SCH (08:33)
--- NOTE | 2018-05-18 09:30 | NUR ---
PT IS SEDATED; FLACC 0. BED LOCKED, LOWEST POSITION, ALARM ON. HOB 30 DEG. CALL LIGHT WITHIN REACH
--- NOTE | 2018-05-18 11:12 | NUR ---
VENT AND AIRWAY PATENCY CHECK. PATIENT IS SEDATED. B/S ARE COARSE BILATERALLY. SUCTIONED PATIENT AND RECEIVED SMALL TO MODERATE, PALE YELLOW THICK SECRETIONS. PEAK PRESSURES IMPROVED POST SUCTIONING. PATIENT APPEARS COMFORTABLE WITH NO RESPIRATORY DISTRESS. WILL CONTINUE TO MONITOR.
--- NOTE | 2018-05-18 12:27 | NUR ---
PT SEDATED; FLACC 0.
--- NOTE | 2018-05-18 13:30 | NUR ---
WEENING OFF PROPOFOL; SEDATION VACATION. RASS -2
--- NOTE | 2018-05-18 13:45 | NUR ---
VENT CHECK AND ROBERT SKAGGS. RN AT BEDSIDE AND BEGAN SEDATION VACATION. PATIENT STARTING TO WAKE AND RESPONDING TO QUESTIONS WITH HEAD NODS. COMPLETED INLINE DUONEB TREATMENT WITH NO ADVERSE REACTION. CHANGED HME. RN SUCTIONED PATIENT, RECEIVED SMALL, WHITE, THIN SECRETIONS. ADVISED PATIENT THAT HE WILL BE STARTING A CPAP TRIAL.
--- NOTE | 2018-05-18 14:46 | NUR ---
PLACED PATIENT ON CPAP PS 10 PEEP 5. SPO2 99. PATIENT IS AWAKE, DROWSY AND IRRITABLE. ADVISED RN THAT PATIENT IS PLACED ON CPAP AND WILL CONTINUE TO MONITOR. Addendum: 05/18/18 at 1450 by Celsetina Merchant RT CPAP TRIAL STARTED AT 1412
--- NOTE | 2018-05-18 15:00 | NUR ---
EXTUBATED PT; RT AND [address] JENNINGS ORDERED SPEECH PATHOLOGIST SWALLOW EVALUATION AT BEDSIDE TOMORROW 24 HOURS AFTER EXTUBATION. SAID THAT IF PT IS HUNGRY LATER TODAY RN CAN DO BEDSIDE SWALLOW EVALUATION.
--- NOTE | 2018-05-18 15:00 | NUR ---
RECEIVED CALL FROM RN THAT PATIENT PULLED ET TUBE. ARRIVED IN THE UNIT AND RN STATED THAT SHE SPOKE WITH DR. MONGE WHO ADVISED TO COMPLETE EXTUBATION. PATIENT EXTUBATED AT 1500 AND PLACED ON 2L/M NASAL CANNULA. PATIENT SAID THAT HIS THROAT DOES NOT HURT. PATIENT IS CALM AND COOPERATIVE. WILL CONTINUE TO MONITOR.
--- NOTE | 2018-05-18 15:51 | NUR ---
SPOKE WITH MIK BARBOSA FROM [employer]. SHE SAID TO FAX REVIEW TO [phone] PHONE [phone]. FAXED INITIAL REVIEW.
--- NOTE | 2018-05-18 16:20 | NUR ---
PT IS ARGUMENTATIVE; REFUSES CARE AND USES PROFANITY TOWARD THE NURSES. SECURITY WAS NOTIFIED OF SITUATION
--- NOTE | 2018-05-18 16:24 | NUR ---
PT REMOVED NGT TUBE.
--- NOTE | 2018-05-18 16:26 | NUR ---
TUBE FEED RECOMMENDATIONS WERE GIVEN TO DR. JENNINGS FOR TWO CAROLINE HN @ 55 ML/HR GOAL RATE, START AT 20 ML/HR, INCREASE BY 10 ML/HR Q6H. FREE WATER FLUSH [address]. [address]ISCA MART[address]
--- NOTE | 2018-05-18 16:33 | NUR ---
BEDSIDE SWALLOW EVALUATION DONE; PT IS ABLE TO TOLERATE APPLE SAUCE. PT SEEMED TO HAVE A HARDER TIME WITH LIQUID (ORANGE JUICE). UPDATED DR. JENNINGS; PUREE DIET (HONEY THICK) ORDERED FOR DIET.
--- NOTE | 2018-05-18 16:37 | NUR ---
ASPIRATION PRECAUTION IN PLACE; ELEVATE HOB 90 DEG WHILE EATING AND FOR 15-30 MIN AFTER EATING. STAY WITH PT WHILE INGESTING FOOD/LIQUIDS. ASSIST PT WITH SMALL BITES OF FOOD. HONEY-THICK PUREE DIET.
--- NOTE | 2018-05-18 16:41 | NUR ---
PT REMOVED ALL LEAD STICKERS; SPO02 MONITOR AND BP CUFF. REFUSED TO HAVE BP CUFF PUT BACK ON
--- NOTE | 2018-05-18 16:57 | NUR ---
PT REFUSES SCDS. HE SAID THEY ARE UNCOMFORTABLE AND WANTS THEM OFF.
--- NOTE | 2018-05-18 17:15 | NUR ---
pt refuses gibbons care.
[2018-05-18] MEDS: NACL 0.9% 1,000 ML IV SCH (17:18)
--- NOTE | 2018-05-18 17:57 | NUR ---
DR. GALLEGO AT BEDSIDE ASSESSING PT.
--- NOTE | 2018-05-18 18:43 | NUR ---
PT FACE SHEET FAXED TO DR. SCHNEIDER'S OFFICE FOR CONSULTATION.
[2018-05-18] MEDS ORDERED: LORazepam 2 MG/ML VIAL IVP PRN (18:45)
--- NOTE | 2018-05-18 19:14 | NUR ---
ENDORSED CARE TO SWATI FIGUEREDO RN, FOR CONTINUATION OF CARE.
--- NOTE | 2018-05-18 19:20 | NUR ---
RECEIVED REPORT FROM MORNING SHIFT RN, JEM, FOR CONTINUITY OF CARE. AFEBRILE, TEMP 98.0, VSS, PERRL, PT AOX1, ABLE TO STATE NAME AND . LUNG SOUNDS CLEAR UPPER LOBES BILATERALLY, DIMINISHED IN LOWER BILATERAL LOBES, ON ROOM AIR. SR ON HAUL CANE BRAKEMAN. BOWEL SOUNDS ACTIVE ON AUSCULTATION IN ALL FOUR QUADRANTS. PUREE HONEY THICK DIET NOTED. MORAN CATHETER IN PLACE, URINE IS DARK YELLOW-BROWN. SCDS OFF ON BILATERAL LEGS. RIGHT IJ IS INFUSING NS AT 50 ML/HR. SKIN IS INTACT, NORMAL IN COLOR WARM/DRY TO TOUCH. HOB ELEVATED ABOVE 30 DEG. PT IS ABLE TO REPOSITION HIMSELF IN BED. PILLOW SUPPORT PROVIDED. STANDARD AND FALL PRECAUTIONS MAINTAINED. SIDE RAILS UP X4, BED IN LOWEST POSITION.
--- NOTE | 2018-05-18 19:49 | NUR ---
PATIENT REFUSED HHNTX, VENT TAKEN OUT OF THE ROOM
[2018-05-18] MEDS: HYDROcodone/APAP 7.5/325 MG 1 TAB PO PRN (19:51)
--- NOTE | 2018-05-18 20:15 | NUR ---
HONEY THICKENED WATER GIVEN PER PT REQUEST. HOB ELEVATED ABOVE 30 DEG, ASPIRATION PRECAUTIONS MAINTAINED.
[2018-05-18] MEDS: ATORVASTATIN 20 MG TAB NG SCH (20:25)
--- NOTE | 2018-05-18 21:20 | NUR ---
PT REFUSED HEPARIN SUBQ MEDICATION.
--- NOTE | 2018-05-18 21:20 | NUR ---
PT IS AGITATED IN BED, REPEATEDLY STATES TO "CALL THE PATHOLOGICAL TECHNICIAN" REITERATED TO PATIENT THAT HE IS IN THE HOSPITAL AND WE ARE HERE TO TAKE CARE OF HIM, CONTINUE TO BE AGITATED. PT IS ABLE TO REPOSITION HIMSELF IN BED. PT HAS PRODUCTIVE COUGH AND ABLE TO SUCTION HIMSELF TO REMOVE SECRETIONS. PT REFUSED TO WEAR SCDS.
--- NOTE | 2018-05-18 22:18 | NUR ---
PT SLEEPING QUIETLY IN BED AT THIS TIME.
[2018-05-19] VITALS (8 sets, daily range): BP systolic 127–146; BP diastolic 71–107
--- NOTE | 2018-05-19 02:09 | NUR ---
CALLED DR. LANGFORD INFORMED ABOUT PT'S ELEVATING BLOOD PRESSURES 146/106. PT IS SLEEPING QUIETLY IN BED AT THIS TIME, WITHOUT ANY SIGNS OF DISTRESS.
[2018-05-19] MEDS ORDERED: CARVEDILOL 6.25 MG TAB PO ONE (02:30)
[2018-05-19] MEDS: HYDROcodone/APAP 7.5/325 MG 1 TAB PO PRN ×2 (02:40→21:03)
--- NOTE | 2018-05-19 02:48 | NUR ---
COREG GIVEN, NS INFUSING TO RIGHT IJ AT 50ML/HR. PT STATED HAVING PAIN, NORCO ADMINISTERED. SCDS OFF PER PT REQUEST. PT REFUSED REPOSITIONING AND CATHETER CARE, ABLE TO REPOSITION HIMSELF. URINE IS DARK REHAN/BROWN IN COLOR.
--- NOTE | 2018-05-19 03:05 | NUR ---
BP REASSESSMENT OF 139/88.
[2018-05-19] MEDS: PIPER/TAZO 3.375GM/D5W PREMIX 50 ML IV SCH ×3 (04:40→20:48)
--- NOTE | 2018-05-19 04:55 | NUR ---
RAY FROM AT BEDSIDE TO COMPLETE BLOOD DRAW. UNABLE TO COLLECT BLOOD SAMPLE FROM CENTRAL LINE DUE TO ONLY A MINIMAL AMOUNT OF BLOOD BEING COLLECTED. BLOOD WAS COLLECTED VIA PT FOREARM. INFORMED LAB, PT REFUSED HEPARIN SUBQ INJECTION AT START OF SHIFT. ONE LUMEN INFUSING NS AT 50ML/HR, OTHER LUMEN SALINE FLUSHED WITH BLOOD RETURN. PT REFUSED CENTRAL LINE CLEANING/NEW DRESSING CHANGE.
--- NOTE | 2018-05-19 05:05 | NUR ---
PT HAS BEEN REFUSING MORNING CARES, CATHETER CARE, CHANGE OF LINEN/GOWN, SCD'S AND ANY REPOSITIONING. THICKENED WATER GIVEN PER PT REQUEST. HOB ELEVATED WHEN DRINKING, BED IN LOWEST POSITION.
[2018-05-19 05:07] LABS: BASOPHILS % (AUTO) 0.4 % (0.0-2.0); EOSINOPHILS # (AUTO) 0.2 K/uL (0-0.4); EOSINOPHILS % (AUTO) 3.4 % (0.0-4.0); HEMATOCRIT 45.1 % (36-52); HEMOGLOBIN 15.2 g/dL (12.0-18.0); LYMPHOCYTES # (AUTO) 1.3 K/uL (2.0-11.5); LYMPHOCYTES % (AUTO) 25.7 % (20.5-51.1); MEAN CORPUSCULAR HEMOGLOBIN 32 pg (27-31); MEAN CORPUSCULAR HGB CONC 34 g/dL (33-37); MEAN CORPUSCULAR VOLUME 95.7 fL (80-94); MONOCYTES # (AUTO) 0.5 K/uL (0.8-1.0); MONOCYTES % (AUTO) 9.5 % (1.7-9.3); PLATELET COUNT (AUTO) 197 K/uL (140-450); RED BLOOD CELL COUNT(AUTO) 4.71 MIL/uL (4.20-6.10); RED CELL DISTRIBUTION WIDTH 14.7 % (11.6-13.7); WHITE BLOOD COUNT (AUTO) 4.9 K/uL (4.8-10.8)
[2018-05-19 05:31] LABS: CARBON DIOXIDE 26.3 mmol/L (21-32); CREATININE 0.8 mg/dL (0.7-1.3); POTASSIUM 3.3 mmol/L (3.5-5.1)
[2018-05-19 05:33] LABS: MAGNESIUM 1.7 mg/dL (1.8-2.4); PHOSPHORUS 3.1 mg/dL (2.5-4.9)
[2018-05-19] MEDS ORDERED: MAG SULF 2000 MG/WATER PREMIX 50 ML IV ONE (06:30)
[2018-05-19] MEDS ORDERED: POTASSIUM CHLORIDE 10 MEQ TABER PO ONE (06:30)
[2018-05-19] MEDS: ALBUTEROL SULFATE/IPRATROPIU 3 ML SOL IH SCH ×3 (06:56→19:15)
--- NOTE | 2018-05-19 07:00 | NUR ---
PROVIDED BEDSIDE REPORT TO MORNING SHIFT RNMARYANN, FOR CONTINUITY FO CARE.
--- NOTE | 2018-05-19 07:30 | NUR ---
RECEIVED REPORT FROM ADOPTION WORKER NURSE AT BEDSIDE, PT IS AAOX3, ABLE TO FOLLOW COMMANDS AND MAKE NEEDS KNOWN. VSS, DENIES PAIN, NO S/S OF DISTRESS, CLEAR LUNG SOUNDS MINISTERIO. ON RA, O2 SAT 96%, DENIES CHEST PAIN, SR WITH PVC'S ON PV INSTALLER TECH, SOFT ABDOMEN WITH ACTIVE BOWEL SOUNDS, ON PUREE DIET, MORAN CATHETER IN PLACE WITH CLOUDY YELLOW URINE VIA GRAVITY. SKIN IS WARM AND DRY TO TOUCH, GENERALIZED WEAKNESS NOTED, CENTRAL LINE TO RIJ, TLC, PATENT RUNNING NS AT 50ML/HR. HOB ELEVATED TO 30 DEGREES, SAFETY MEASURE IN PLACE, CALL LIGHT WITHIN REACH, WILL CONTINUE TO MONITOR.
[2018-05-19] MEDS ORDERED: CARVEDILOL 6.25 MG TAB PO SCH (09:00)
[2018-05-19] MEDS ORDERED: KCL 20 MEQ/WATER INJ PREMIX 100 ML IV SCH (09:00)
--- NOTE | 2018-05-19 09:00 | NUR ---
ST EVALUATION AT BEDSIDE. PT ABLE TO SWALLOW MEDICATION WHOLE.
[2018-05-19] MEDS: LACTOBACILLUS RHAMNOSUS GG 1 EACH CAP PO SCH (09:05)
[2018-05-19] MEDS: THIAMINE 100 MG TAB PO SCH (09:05)
[2018-05-19] MEDS: FOLIC ACID 1 MG TAB PO SCH (09:06)
[2018-05-19] MEDS: MULTIVITAMIN 1 TAB PO SCH (09:06)
[2018-05-19] MEDS: CLOPIDOGREL 75 MG TAB PO SCH (09:06)
[2018-05-19] MEDS: chlordiazePOXIDE 25 MG CAP PO SCH ×3 (09:06→16:46)
[2018-05-19] MEDS: LISINOPRIL 5 MG TAB NG SCH (09:07)
[2018-05-19] MEDS: DOCUSATE SODIUM 100 MG GELCAP PO SCH ×2 (09:07→20:49)
[2018-05-19] MEDS: ASPIRIN 81 MG TAB.CHEW NG SCH (09:09)
--- NOTE | 2018-05-19 09:12 | NUR ---
MORAN CATHETER REMOVED ORDERED, PT TOLERATED WELL, 200ML OUTPUT NOTED.
--- NOTE | 2018-05-19 09:18 | NUR ---
SPEECH THERAPY NOTE Time in/out: 6123-462 ST bedside swallow eval completed. See report for details. Pt presents with adequate oropharyngeal swallow function for textures given, including PO meds--whole pills given one at time with water via straw. No overt s/s aspiration observed. Recommend: 1) Advance PO diet to mechanical soft chopped, thin liquids okay. 2) P.O. meds okay, whole pills to be given one at a time. 3) Aspiration precautions 4) No further ST tx indicated at this time. DC to nsg care. G8996 CI G8997 CI G8998 CI NOMS LEVEL 2
--- NOTE | 2018-05-19 11:17 | NUR ---
FAXED CONCURRENT REVIEW TO [facility] [phone] PHONE MIK [phone]. I SPOKE WITH MIK AND ASKED HER TO FAX ME A LIST OF THEIR CONTRACTED SNF'S.
--- NOTE | 2018-05-19 12:00 | NUR ---
NO CHANGE OF CONDITION AT THIS TIME, PT IS RESTING IN BED, NO S/S OF DISTRESS, VSS, DENIES PAIN.
--- NOTE | 2018-05-19 13:09 | NUR ---
PT SLEEPING NO HHN GIVEN AT THIS TIME NO SIGNS OF DISTRESS NOTED
[2018-05-19] MEDS: NACL 0.9% 1,000 ML IV SCH (13:13)
--- NOTE | 2018-05-19 15:07 | NUR ---
05/19/18 RD FOLLOW UP COMPLETED PLEASE REFER TO NUTRITION PROGRESS NOTE UNDER CARE ACTIVITY FOR ESTIMATED NUTRITIONAL NEEDS. 1. CONTINUE CCHO 60, NA 2GM, MECHANICAL SOFT DIET TOLERATED. 2. RECOMMEND GLUCERNA BID. 3. IF PO INTAKE CONTINUES <50%, RECOMMEND TUBE FEEDING IN ADDITION TO PO DIET. 3. RD TO FOLLOW-UP 2-3 DAYS, HIGH RISK. FRANCISCA MARTINEZ RD
--- NOTE | 2018-05-19 15:30 | NUR ---
DR. ROBERTSON CAME IN TO SEE PT AT BEDSIDE, WILL FOLLOW UP WITH NEW ORDERS.
--- NOTE | 2018-05-19 16:00 | NUR ---
PT IS ASLEEP IN BED QUIETLY, NO S/S OF DISTRESS, VSS, DENIES PAIN, PM CARE PROVIDED.
--- NOTE | 2018-05-19 19:10 | NUR ---
REPORT GIVEN TO BUNCH MAKER HAND NURSE FOR CONTINUE OF CARE, PT IS IN STABLE CONDITION AT THIS TIME.
--- NOTE | 2018-05-19 19:25 | NUR ---
RCEIVED BEDSIDE REPORT FROM MORNING SHIFT RNMARYANN, FOR CONTINUITY OF CARE. AFEBRILE, PERRL, ABLE TO MAKE NEEDS KNOWN AND RESPOND TO COMMANDS. PT IS RELAXED, DENIES PAIN AT THIS TIME. REVENUE LIAISON APPEARS RELAXED, FREE OF DISTRESS AT THIS TIME. ON ROOM AIR, LUNG SOUNDS CLEAR ON BUL/DAPHNIE. SR ON CERTIFIED ORTHOTIST. BOWEL SOUNDS ACTIVE IN ALL FOUR QUADRANTS ON 60G, CCHO DIET NOTED. URINAL AT BEDSIDE, URINE OUTPUT 175ML AT THIS TIME, REHAN IN COLOR. RIGHT IJ CATHETER INFUSING NS AT 50ML/HR. SKIN IS DRY, WARM TO TOUCH AND INTACT. PT IS ABLE TO REPOSITION HIMSELF IN BED, PILLOW SUPPORT PROVIDED. CALL LIGHT WITHIN REACH, HOB ELEVATED, SIDE RAILS UP X4. STANDARD PRECAUTIONS MAINTAINED.
[2018-05-19] MEDS: ATORVASTATIN 20 MG TAB NG SCH (20:49)
--- NOTE | 2018-05-19 22:36 | NUR ---
URINE OUTPUT 225, DARK REHAN IN COLOR. PT IS SLEEPING IN BED, APPEARS TO BE WITHOUT DISTRESS. BP 144/95 VSS. BED IN LOWEST POSITION AND STANDARD PRECAUTIONS MAINTAINED.
[2018-05-20] VITALS: BP 128/83
--- NOTE | 2018-05-20 00:52 | NUR ---
PT SLEEPING, VSS, BP 128/ 83. URINE OUTPUT 100ML, DARK REHAN. REPOSITIONS SELF IN BED. BED IN LOWEST POSITION, CALL LIGHT WITHIN REACH.
--- NOTE | 2018-05-20 02:15 | NUR ---
PT SLEEPING QUIETLY, DENIES PAIN AT THIS TIME.
[2018-05-20 04:00] VITALS: BP 132/85
--- NOTE | 2018-05-20 04:05 | NUR ---
AFEBRILE, BP 132/85 BED BATH PROVIDED TO PT AT BEDSIDE, FRESH GOWN, PILLOW CASES, PAD, SHAMPOO CAP PROVIDED. PT REPOSITIONED.HOB ELEVATED, BED IN LOWEST POSITION, SIDE RAILS UP X4. NS INFUSING TO RIGHT IJ AT 50ML/HR. URINAL AT BEDSIDE. SCD'S OFF BILATERAL LEG PER PT REQUEST. DENIES PAIN AT THIS TIME. STANDARD AND FALL RISK PRECAUTIONS MAINTAINED.
[2018-05-20 05:04] LABS: EOSINOPHILS # (AUTO) 0.2 K/uL (0-0.4); HEMATOCRIT 44.7 % (36-52); HEMOGLOBIN 14.9 g/dL (12.0-18.0); LYMPHOCYTES # (AUTO) 1.3 K/uL (2.0-11.5); LYMPHOCYTES % (AUTO) 27.3 % (20.5-51.1); MEAN CORPUSCULAR HEMOGLOBIN 32 pg (27-31); MEAN CORPUSCULAR HGB CONC 33 g/dL (33-37); MEAN CORPUSCULAR VOLUME 96.2 fL (80-94); MONOCYTES # (AUTO) 0.5 K/uL (0.8-1.0); MONOCYTES % (AUTO) 10.1 % (1.7-9.3); NEUTROPHILS # (AUTO) 2.8 K/uL (1.8-7.7); NEUTROPHILS % (AUTO) 56.6 % (42.2-75.2); PLATELET COUNT (AUTO) 197 K/uL (140-450); RED BLOOD CELL COUNT(AUTO) 4.65 MIL/uL (4.20-6.10); RED CELL DISTRIBUTION WIDTH 14.4 % (11.6-13.7); WHITE BLOOD COUNT (AUTO) 4.9 K/uL (4.8-10.8)
[2018-05-20] MEDS: PIPER/TAZO 3.375GM/D5W PREMIX 50 ML IV SCH ×2 (05:04→13:47)
[2018-05-20 05:21] LABS: ANION GAP 9.9 (8-16); CARBON DIOXIDE 26.6 mmol/L (21-32); CREATININE 0.8 mg/dL (0.7-1.3); POTASSIUM 3.5 mmol/L (3.5-5.1)
--- NOTE | 2018-05-20 05:24 | NUR ---
200ML/ DARK REHAN URINE OUTPUT, EMPTIED FROM URINAL. PT SLEEPING QUIETLY.
[2018-05-20 05:25] LABS: MAGNESIUM 1.7 mg/dL (1.8-2.4); PHOSPHORUS 3.5 mg/dL (2.5-4.9)
[2018-05-20] MEDS ORDERED: MAG SULF 2000 MG/WATER PREMIX 50 ML IV SCH (07:00)
[2018-05-20] MEDS: ALBUTEROL SULFATE/IPRATROPIU 3 ML SOL IH SCH ×3 (07:12→19:30)
--- NOTE | 2018-05-20 07:30 | NUR ---
PROVIDED BEDSIDE REPORT TO MORNING SHIFT RNARA, FOR CONTINUITY OF CARE.
--- NOTE | 2018-05-20 07:30 | NUR ---
RECEIVED REPORT FROM CHRISTM[employer] FARM MANAGER RN. PT RESTING IN BED SR ON MONITOR. IN ROOM AIR SATURATING 100%. SKIN DRY AND WARM TO TOUCH. LUNGS CLEAR. RIJ TRIPLE LUMEN NOTED. INTACT WITH GOOD BLOOD RETURNS. NS RUNNING AT 50 ML/HR. ABDOMEN SOFT, ROUND AND NON-TENDER. ACTIVE BOWEL SOUND. DRY SCABS NOTED ON BLE. KEPT HOB ELEVATED, BED IN LOW POSITION LOCKED. WILL CONTINUE TO MONITOR.
[2018-05-20 08:00] VITALS: BP 133/71
--- NOTE | 2018-05-20 08:25 | NUR ---
PT APPEARS TO BE AGGRESSIVE UP ON ASKING FAMILY INFORMATION. PT STATED HE DOES NOT KNOW FAMILY NUMBER AND WANTS TO GO FROM HERE.
--- NOTE | 2018-05-20 08:29 | NUR ---
PT DENIES TO HAVE SPONGING AND MORNING CARE. PROVIDED BREAKFAST. INSTRUCTION GIVEN TO CHEW AND SWALLOW SLOWLY. HOB IN UPRIGHT POSITION. PT EATING BREAKFAST. Addendum: 05/20/18 at 1209 by Geovanna Mccarty RN REFUSED TO BE ON SCDS.
[2018-05-20] MEDS: ASPIRIN 81 MG TAB.CHEW NG SCH (09:05)
[2018-05-20] MEDS: LISINOPRIL 5 MG TAB NG SCH (09:06)
[2018-05-20] MEDS: DOCUSATE SODIUM 100 MG GELCAP PO SCH ×2 (09:06→20:46)
[2018-05-20] MEDS: FOLIC ACID 1 MG TAB PO SCH (09:07)
[2018-05-20] MEDS: CARVEDILOL 12.5 MG TAB PO SCH (09:07)
[2018-05-20] MEDS: LACTOBACILLUS RHAMNOSUS GG 1 EACH CAP PO SCH (09:07)
[2018-05-20] MEDS: MULTIVITAMIN 1 TAB PO SCH (09:08)
[2018-05-20] MEDS: CLOPIDOGREL 75 MG TAB PO SCH (09:08)
[2018-05-20] MEDS: chlordiazePOXIDE 25 MG CAP PO SCH ×3 (09:08→16:35)
[2018-05-20] MEDS: NACL 0.9% 1,000 ML IV SCH (09:09)
[2018-05-20] MEDS: THIAMINE 100 MG TAB PO SCH (09:09)
[2018-05-20] MEDS ORDERED: ATI.5 PO (09:52)
--- NOTE | 2018-05-20 10:36 | NUR ---
CM NOTE FAXED CONCURRENT REVIEW AND ORDER FOR SNF TO [facility] [phone] # [facility] [place] [phone]. RECEIVED LIST OF CONTRACTED [facility] SNF FROM [facility] WHICH WAS FORWARDED TO [facility].
--- NOTE | 2018-05-20 10:41 | NUR ---
SLEEPING IN BED COMFORTABLE. CONTINUE ON BEDSIDE MONITORING.
--- NOTE | 2018-05-20 10:50 | NUR ---
MADE CALL TO PROFILING MACHINE SETUP OPERATOR AND LEFT MESSAGE TO FOLLOW UP FOR PLACEMENT. WAITING FOR CALL BACK
--- NOTE | 2018-05-20 11:30 | NUR ---
Video Rental Clerk Notes: I faxed Patient's Clinical Information and MD orders for Physical Therapy to [facility] at , [facility] , [facility] , [facility] , and [facility] [phone] for short-term placement.
--- NOTE | 2018-05-20 11:39 | NUR ---
PT STATED HE WANTS TO GO FROM HERE. MADE AWARE THAT WE ARE WAITING FOR AGRICULTURAL ENGINEERING TEACHER CALL BACK REGARDING PLACEMENT. PT SAID OK.
--- NOTE | 2018-05-20 11:40 | NUR ---
Account Manager Notes: I faxed Patient's Clinical Information and MD orders for Physical Therapy to [facility] , [facility] , [facility] , and [facility] for short-term placement.
--- NOTE | 2018-05-20 11:42 | NUR ---
SPOKE WITH FLAVORING MACHINE OPERATOR EMORY. SAID SHE HAS NOT FOUND PLACE YET. SAID SHE WILL LET US KNOW WHEN SHE FINDS PLACEMENT. Addendum: 05/20/18 at 1144 by Geovanna Mccarty RN PT MADE AWARE.
[2018-05-20 12:00] VITALS: BP 145/88
--- NOTE | 2018-05-20 12:13 | NUR ---
EATING LUNCH AT THIS TIME.
--- NOTE | 2018-05-20 12:43 | NUR ---
ASSISTED NEEDED. WATCHING TV. NO CHANGE IN LOC. CONTINUE TO MONITOR.
--- NOTE | 2018-05-20 13:49 | NUR ---
ADMINISTERED MEDICATION. TOLERATING WELL. CONTINUE TO MONITOR.
--- NOTE | 2018-05-20 13:51 | NUR ---
Senior Marketing Analyst Notes: Leobardo from admissions at [facility] call me back stating that he received patient's Clinical information and he has no beds today. I thanked him for the information and ended the call.
[2018-05-20 16:00] VITALS: BP 136/92
--- NOTE | 2018-05-20 16:36 | NUR ---
ADMINISTERED MEDICATION TOLERATING WELL. EATING CRACKERS AND WATCHING TV. HOB ELEVATED.
--- NOTE | 2018-05-20 18:34 | NUR ---
RESTING IN BED COMFORTABLY. NO RESPIRATORY DISTRESS NOTED. NO CHANGE IN LOC. KEPT CLEAN AND DRY. WILL CONTINUE TO MONITOR.
--- NOTE | 2018-05-20 19:16 | NUR ---
ENDORSED TO PATTERN LEASE INSPECTOR RN. PT ON STABLE CONDITION.
--- NOTE | 2018-05-20 19:30 | NUR ---
RECEIVED REPORT FROM ARA GRECO AM SHIFT. PT IS SLEEPING COMFORTABLE, NO S/S OF ANY PAIN. NO S/S OF RESP DISTRESS, PT IS ON ROOM AIR WITH SPO2 96%. BILATERAL LUNGS SOUND CLEAR. SR ON MONITOR. PICC LINE TO RIGHT INTERNAL JUGULAR TRIPLE LUMENS. GOOD BLOOD RETURN NOTED. NO S/S OF INFECTION ON THE SITE. IV NS AT 50 CC/HR RUNNING WELL. SKIN WARM TO TOUCH. ABD SOFT NON DISTENDED. PT IS CONTINENT BLADDER ABLE TO USE URINAL. YELLOW CLEAR URINE NOTED. KEPT CLEAN AND DRY. CALL LIGHT IN REACH.
[2018-05-20 20:00] VITALS: BP 148/82
[2018-05-20] MEDS: ATORVASTATIN 20 MG TAB NG SCH (20:46)
--- NOTE | 2018-05-20 21:15 | NUR ---
ROUTINE NIGHT MEDS GIVEN PO WITH APPLE SAUCE . PT ABLE TO TAKE IT BY HIM SELF . DENIAL PAIN AT THIS TIME. PT IS WATCHING TV.
--- NOTE | 2018-05-20 22:30 | NUR ---
PT ASKING FOR ICE CREAM AND FEED HIM SELF.
[2018-05-21 00:08] VITALS: BP 142/81
--- NOTE | 2018-05-21 00:14 | NUR ---
PT SLEEPING WELL NO FEVER
--- NOTE | 2018-05-21 03:00 | NUR ---
PT URINATE USING URINAL WITH YELLOW CLEAR URINE NOTED. DENIES ANY PAIN
[2018-05-21 04:00] VITALS: BP 149/90
--- NOTE | 2018-05-21 05:30 | NUR ---
AM CARE GIVEN. ABLE TO WIPE HIM SELF . KEPT CLEAN AND DRY. PLAN TO TRANSFER TO TELE FLOOR.
[2018-05-21] MEDS: NACL 0.9% 1,000 ML IV SCH (05:33)
[2018-05-21 05:56] LABS: BASOPHILS % (AUTO) 0.3 % (0.0-2.0); EOSINOPHILS # (AUTO) 0.2 K/uL (0-0.4); EOSINOPHILS % (AUTO) 3.7 % (0.0-4.0); HEMATOCRIT 43.1 % (36-52); HEMOGLOBIN 14.2 g/dL (12.0-18.0); LYMPHOCYTES # (AUTO) 1.5 K/uL (2.0-11.5); LYMPHOCYTES % (AUTO) 26.5 % (20.5-51.1); MEAN CORPUSCULAR HEMOGLOBIN 32 pg (27-31); MEAN CORPUSCULAR HGB CONC 33 g/dL (33-37); MEAN CORPUSCULAR VOLUME 96.1 fL (80-94); MONOCYTES # (AUTO) 0.5 K/uL (0.8-1.0); MONOCYTES % (AUTO) 8.9 % (1.7-9.3); NEUTROPHILS # (AUTO) 3.4 K/uL (1.8-7.7); NEUTROPHILS % (AUTO) 60.6 % (42.2-75.2); PLATELET COUNT (AUTO) 215 K/uL (140-450); RED BLOOD CELL COUNT(AUTO) 4.48 MIL/uL (4.20-6.10); RED CELL DISTRIBUTION WIDTH 14.4 % (11.6-13.7); WHITE BLOOD COUNT (AUTO) 5.5 K/uL (4.8-10.8)
[2018-05-21 06:21] LABS: ANION GAP 8.8 (8-16); CARBON DIOXIDE 27.5 mmol/L (21-32); CREATININE 0.7 mg/dL (0.7-1.3); POTASSIUM 3.3 mmol/L (3.5-5.1)
[2018-05-21 06:27] LABS: MAGNESIUM 1.7 mg/dL (1.8-2.4); PHOSPHORUS 3.9 mg/dL (2.5-4.9)
--- NOTE | 2018-05-21 06:45 | NUR ---
PT TRANSFERRED TO TELE.
[2018-05-21] MEDS ORDERED: KCL 20 MEQ/WATER INJ PREMIX 100 ML IV SCH (07:00)
[2018-05-21] MEDS ORDERED: MAG SULF 2000 MG/WATER PREMIX 50 ML IV SCH (07:00)
[2018-05-21] MEDS: ALBUTEROL SULFATE/IPRATROPIU 3 ML SOL IH SCH ×2 (07:07→13:00)
--- NOTE | 2018-05-21 07:10 | NUR ---
RECEIVED REPORT FROM WELDING MACHINE OPERATOR THERMIT NURSE. PT ASLEEP IN BED, AROUSABLE BY VOICE, NO SIGNS OF DISTRESS, RESPIRATIONS EVEN & UNLABORED. CALL LIGHT WITHIN REACH. WILL CONTINUE TO MONITOR.
[2018-05-21 08:00] VITALS: BP 168/94
[2018-05-21] MEDS: DOCUSATE SODIUM 100 MG GELCAP PO SCH (08:28)
[2018-05-21] MEDS: LISINOPRIL 5 MG TAB NG SCH (08:28)
[2018-05-21] MEDS: MULTIVITAMIN 1 TAB PO SCH (08:28)
[2018-05-21] MEDS: FOLIC ACID 1 MG TAB PO SCH (08:28)
[2018-05-21] MEDS: ASPIRIN 81 MG TAB.CHEW NG SCH (08:28)
[2018-05-21] MEDS: CARVEDILOL 12.5 MG TAB PO SCH (08:29)
[2018-05-21] MEDS: LACTOBACILLUS RHAMNOSUS GG 1 EACH CAP PO SCH (08:29)
[2018-05-21] MEDS: CLOPIDOGREL 75 MG TAB PO SCH (08:29)
[2018-05-21] MEDS: THIAMINE 100 MG TAB PO SCH (08:29)
[2018-05-21] MEDS: chlordiazePOXIDE 25 MG CAP PO SCH (08:29)
--- NOTE | 2018-05-21 10:00 | NUR ---
Principal Architectural Firm Notes: I called [facility] at about Patient's inquire for SNF placement and I spoke to Jakob from admissions stating that the facility do not have (054) beds available. I called [facility] at and I spoke to Shira from admission, stating that she review Patient's Clinical information and the facility has no beds available today, but possibly tomorrow 05/22/28. I called [facility] at and I spoke to Bonifacio from admissions; stated that he will review Patient's clinicals today and will call me back if accepted today.
--- NOTE | 2018-05-21 11:43 | NUR ---
PT SLEEPING IN BED, AROUSABLE BY VOICE. DENIES ANY PAIN. NO SIGNS OF DISTRESS. FALL PRECAUTIONS IN PLACE. CALL LIGHT WITHIN REACH. WILL CONTINUE TO MONITOR.
[2018-05-21 12:00] VITALS: BP 148/108
--- NOTE | 2018-05-21 13:00 | NUR ---
Hard Candy Spinner Notes: I met with Patient at bed side and discuss his plan for discharge and provide him with resources to Shelters. Per Patient he is ready for discharge today to only the correction of his like, according to Patient the correction's name is "[facility]". Per Patient he usually goes to [employer] [facility] [employer] and meets with Chrome Plater Thom Zuniga who helps him be placed at the correction. Per Patient he only wants to go to that correction and asked to be provided with a bus pass to assist him with his transportation. Patient did accept these writers resources to correction list and to low cost health care clinics but stated that he will be going to the correction he wants.
--- NOTE | 2018-05-21 13:20 | NUR ---
PHYSICAL THERAPIST AT BEDSIDE, PT WALKING IN HALLWAY WITH AND WITHOUT VILLALOBOS.
--- NOTE | 2018-05-21 13:24 | NUR ---
PT IS EATING. REFUSED HHN TX.
--- NOTE | 2018-05-21 13:37 | NUR ---
05/21/18 RD FOLLOW UP COMPLETED PLEASE REFER TO NUTRITION PROGRESS NOTE UNDER CARE ACTIVITY FOR ESTIMATED NUTRITIONAL NEEDS. 1. CONTINUE CCHO 60, NA2 GM, MECHANICAL SOFT, PUREE DIET TOLERATED. 2. RD TO FOLLOW-UP 5-7 DAYS, LOW RISK. FRANCISCA MARTINEZ, RD
--- NOTE | 2018-05-21 13:55 | NUR ---
RT IJ CATH REMOVED, CATH INTACT, NO BLEEDING NOTED. SITE COVERED WITH TRANSPARENT DRESSING. DISCHARGE INSTRUCTIONS GIVEN & EXPLAINED. PT VERBALIZED FULL UNDERSTANDING. HOMELESS PACKET PROVIDED. WAIVER FORM SIGNED. PT WALKING WITH STEADY GAIT WITH CANE. BUS PASS PROVIDED. PT ESCORTED OUT TO FRONT LOBBY FOR DISCHARGE.
--- NOTE | 2018-05-21 15:02 | NUR ---
PHYSICAL THERAPY CO-SIGN The Physical Therapy Progress Notes documented by Teacher Of The Visually Impaired have been reviewed. I CONCUR W/SURPLUS PROPERTY DISPOSAL AGENT NOTE; CONT PER TX PLAN Reviewed/Co-Signed by: Jeannie Castro, PT Documentation Done by: JORDAN BROWNLEE PTA Addendum: 05/21/18 at 1503 by Jeannie Castro PT Amended: Links added.
--- NOTE | 2018-05-21 15:18 | NUR ---
1400 MET WITH PATIENT AND INFORMED HIM THAT SW HAS BEEN UNABLE TO FIND SNF TO ACCEPT HIM. PT STATED THAT HE WOULD JUST RETURN TO HIS PRIOR LIVING ARRANGEMENT AND THAT A [facility] ASSISTS HIM. WILL HAVE SW SPEAK TO PT.
--- NOTE | 2018-05-21 15:31 | NUR ---
FAXED PROGRESS NOTE AND DISCHARGE SUMMARY TO [facility] [phone] PHONE MIK [phone]
== END 2018-05-21 13:55 | disposition home or self-care (01) | DRG 720 ==
LOC: MED 00:09 → MIC 01:36 → MTU 05-21 06:45
PROVIDERS: ADMIT Family Medicine; ATTEND Family Medicine
PROC: 5A1945Z Respiratory Ventilation, 24-96 Consecutive Hours (ICD-10-PCS; principal; 2018-05-16)
PROC: 0BH17EZ Insertion of Endotracheal Airway into Trachea, Via Natural or Artificial Opening (ICD-10-PCS; 2018-05-16)
PROC: 02HV33Z Insertion of Infusion Device into Superior Vena Cava, Percutaneous Approach (ICD-10-PCS; 2018-05-16)
PROC: B548ZZA Ultrasonography of Superior Vena Cava, Guidance (ICD-10-PCS; 2018-05-16)
DX: A41.9 Sepsis, unspecified organism (principal); I21.4 Non-ST elevation (NSTEMI) myocardial infarction; J96.01 Acute respiratory failure with hypoxia; R57.0 Cardiogenic shock; I50.43 Acute on chronic combined systolic (congestive) and diastolic (congestive) heart failure; E87.6 Hypokalemia; F15.10 Other stimulant abuse, uncomplicated; I11.0 Hypertensive heart disease with heart failure; F17.210 Nicotine dependence, cigarettes, uncomplicated; T83.83XA Hemorrhage due to genitourinary prosthetic devices, implants and grafts, initial encounter; Y83.8 Other surgical procedures as the cause of abnormal reaction of the patient, or of later complication, without mention of misadventure at the time of the procedure; I73.9 Peripheral vascular disease, unspecified; E87.8 Other disorders of electrolyte and fluid balance, not elsewhere classified; E83.42 Hypomagnesemia; F12.90 Cannabis use, unspecified, uncomplicated; F41.1 Generalized anxiety disorder; K76.0 Fatty (change of) liver, not elsewhere classified; Z79.1 Long term (current) use of non-steroidal anti-inflammatories (NSAID); Z79.02 Long term (current) use of antithrombotics/antiplatelets; Z51.81 Encounter for therapeutic drug level monitoring; Z59.0 Homelessness; Z83.3 Family history of diabetes mellitus; Z82.49 Family history of ischemic heart disease and other diseases of the circulatory system; Y92.89 Other specified places as the place of occurrence of the external cause
CPT/HCPCS: 31500; 36415; 36600; 43753; 71045; 80048; 80053; 80305; 81001; 82150; 82803; 83036; 83605; 83690; 83735; 83880; 84100; 84439; 84443; 84484; 85025; 85610; 85730; 87040; 87081; 87086; 92610; 93005; 93925; 93970; 94002; 94003; 94640; 96361; 96374; 96375; 97116; 97530; 97535; 99291; J1642; J1644; J1940; J2060; J2543; J2704; J3475; J3480; J3490; J7030; J7620; Q0092

== ENCOUNTER 2018-07-30 13:22 | Emergency (ER) | payer MEDICAID ==
[~2018-07-30] VITALS: Ht 188 cm; Wt 90.7 kg
[~2018-07-30 13:22] MED LIST changes: +ATI.5 PO
[2018-07-30 13:31] VITALS: BP 158/106
--- NOTE | 2018-07-30 13:39 | NUR ---
PT AMBULATES TO BED 9
[2018-07-30] MEDS ORDERED: NACL 0.9% 1,000 ML IV ONE (13:40)
--- NOTE | 2018-07-30 13:40 | NUR ---
REPORT GIVEN TO FANNIE HERNANDEZ
--- NOTE | 2018-07-30 13:42 | NUR ---
C/O BL LOWER EXTREMITY PAIN; PER PT WALKED ABOUT 10 MILES TODAY; DENIES C/P OR SOB HX; TRIPLE BYPASS 3 WKS AGO AT [place]. PT ALSO REPORTS WANTING TO GET SOME STITCHES REMOVED FROM LEFT EYEBROW. PATIENT STATES LEG PAIN OF 8/10 AT THIS TIME; VSS; PATIENT POSITIONED FOR COMFORT; HOB ELEVATED; BEDRAILS UP X1; BED DOWN. ER MD MADE AWARE OF PT STATUS.
--- NOTE | 2018-07-30 13:57 | NUR ---
XRAY AT BEDSIDE
[2018-07-30 14:00] LABS: BASOPHILS % (AUTO) 0.5 % (0.0-2.0); EOSINOPHILS # (AUTO) 0.1 K/uL (0-0.4); EOSINOPHILS % (AUTO) 1.9 % (0.0-4.0); HEMATOCRIT 37.8 % (36-52); HEMOGLOBIN 12.4 g/dL (12.0-18.0); LYMPHOCYTES # (AUTO) 2.3 K/uL (2.0-11.5); LYMPHOCYTES % (AUTO) 33.1 % (20.5-51.1); MEAN CORPUSCULAR HEMOGLOBIN 31 pg (27-31); MEAN CORPUSCULAR HGB CONC 33 g/dL (33-37); MONOCYTES # (AUTO) 0.7 K/uL (0.8-1.0); MONOCYTES % (AUTO) 9.5 % (1.7-9.3); NEUTROPHILS # (AUTO) 3.8 K/uL (1.8-7.7); PLATELET COUNT (AUTO) 298 K/uL (140-450); RED BLOOD CELL COUNT(AUTO) 4.07 MIL/uL (4.20-6.10); RED CELL DISTRIBUTION WIDTH 15.1 % (11.6-13.7)
--- NOTE | 2018-07-30 14:15 | NUR ---
LUNCH PROVIDED TO [facility]O PT, RN DAVID NOTIFIED
[2018-07-30 14:17] LABS: ANION GAP 16.6 (8-16); CARBON DIOXIDE 22.9 mmol/L (21-32); CREATININE 1.1 mg/dL (0.7-1.3); POTASSIUM 3.5 mmol/L (3.5-5.1); TOTAL BILIRUBIN 0.6 mg/dL (0.0-1.0)
[2018-07-30 14:32] LABS: PROTHROMBIN TIME 10.6 secs (10.8-13.4)
--- NOTE | 2018-07-30 14:33 | NUR ---
Patient being evaluated by physician at bedside.
[2018-07-30] MEDS ORDERED: ASPIRIN 81 MG TAB.CHEW PO ONE (14:55)
[2018-07-30] MEDS ORDERED: TRAM50TA1 PO (15:07)
[2018-07-30] MEDS ORDERED: KEP500 PO (15:08)
[2018-07-30] MEDS ORDERED: HYDROcodone/APAP 7.5/325 MG 1 TAB PO PRN (15:10)
[2018-07-30] MEDS ORDERED: ONDANSETRON 4 MG/2 ML VIAL IVP PRN (15:10)
[2018-07-30] MEDS ORDERED: ACETAMINOPHEN 325 MG TAB PO PRN (15:10)
[2018-07-30] MEDS ORDERED: MORPHINE SULFATE 2 MG/ML SYR IVP ONE (15:20)
[2018-07-30 15:24] VITALS: BP 158/106
--- NOTE | 2018-07-30 15:24 | NUR ---
Patient does not wish to proceed with medical care recommended by DR. ROBERT. Patient given information related to possible complications, up to and including , which could occur as a result of leaving hospital at this time. Patient verbalizes understanding of risks involved leaving against medical advice. Patient has signed AMA form.
[2018-07-30] MEDS ORDERED: DOCUSATE SODIUM 100 MG GELCAP PO SCH (21:00)
== END 2018-07-30 15:24 | disposition home or self-care (01) ==
LOC: MED 13:22 → MTU 15:13 → UNDOADMIN 15:13 → MED 15:24
DX: M79.604 Pain in right leg (principal); M79.605 Pain in left leg; R79.89 Other specified abnormal findings of blood chemistry; I10 Essential (primary) hypertension; Z79.1 Long term (current) use of non-steroidal anti-inflammatories (NSAID); Z79.899 Other long term (current) drug therapy
CPT/HCPCS: 36415; 71045; 80053; 84484; 85025; 85610; 85730; 93005; 99285; Q0092

== ENCOUNTER 2018-11-28 14:21 | Emergency (ER) | payer MEDICAID ==
[~2018-11-28] VITALS: Ht 188 cm; Wt 94.3 kg
[~2018-11-28 14:21] MED LIST changes: +KEP500 PO; +TRAM50TA1 PO
--- NOTE | 2018-11-28 14:23 | NUR ---
PT BIBA ALS TO BED 9
[2018-11-28 14:25] VITALS: BP 131/72
--- NOTE | 2018-11-28 14:40 | NUR ---
PATIENT PRESENTS TO ED WITH brought in by ems from streets; pt was getting around in his wheelchair in the rain wet upon arrival---as per ems pt was altered, confused on date denies recent injury----admits recent dc from [facility] pt admits [facility]--- . DENIES N/V/D; SKIN IS PINK/WARM/DRY; AAOX3; LUNGS CLEAR BL; HR EVEN AND REGULAR; PT DENIES ANY FEVER, CP, SOB, OR COUGH AT THIS TIME; PATIENT STATES PAIN OF 0/10 AT THIS TIME; VSS; PATIENT POSITIONED FOR COMFORT; HOB ELEVATED; BEDRAILS UP X2; BED DOWN. ER MD MADE AWARE OF PT STATUS.
--- NOTE | 2018-11-28 14:45 | NUR ---
removed wet clothes---pt awake alert oriented to place time event-- asked pt why was he out in the rain; pt stated, "he just wanted to be out"!. provied pt with apple juice and dry socks---moving all extremities
--- NOTE | 2018-11-28 16:18 | NUR ---
DINNER PROVIDED FOR PT.
--- NOTE | 2018-11-28 17:21 | NUR ---
Patient discharged with v/s stable. Wheeled self out. All questions addressed prior to discharge. Advised to follow up with PMD. Homeless resourses, snack meal, and bus voucher provided.
[2018-11-28 17:37] VITALS: BP 131/72
== END 2018-11-28 17:21 | disposition home or self-care (01) ==
LOC: MED 14:21
DX: E11.649 Type 2 diabetes mellitus with hypoglycemia without coma (principal); K21.9 Gastro-esophageal reflux disease without esophagitis; I10 Essential (primary) hypertension; Z79.891 Long term (current) use of opiate analgesic; Z79.82 Long term (current) use of aspirin; Z79.01 Long term (current) use of anticoagulants; Z79.899 Other long term (current) drug therapy; Z98.890 Other specified postprocedural states; Z79.84 Long term (current) use of oral hypoglycemic drugs
CPT/HCPCS: 99281

== ENCOUNTER 2018-12-01 01:55 | Emergency (ER) | payer MEDICAID ==
[~2018-12-01] VITALS: Ht 175.3 cm; Wt 79.4 kg
--- NOTE | 2018-12-01 01:55 | NUR ---
PT TATE GAMEZ. TAKEN TO CHAIR E
[2018-12-01 02:00] VITALS: BP 130/68
--- NOTE | 2018-12-01 02:17 | NUR ---
PT MOVED TO BED 8
--- NOTE | 2018-12-01 02:30 | NUR ---
PT BIBA C/O BL HIP PAIN. PATIENT TATE RESENTS TO ED WITH BL HIP PAIN. DENIES N/V/D; SKIN IS PINK/WARM/DRY; AAOX4 WITH EVEN AND STEADY GAIT; LUNGS CLEAR BL; HR EVEN AND REGULAR; PT DENIES ANY FEVER, CP, SOB, OR COUGH AT THIS TIME; PATIENT STATES PAIN OF 8/10 AT THIS TIME; VSS; PATIENT POSITIONED FOR COMFORT; HOB ELEVATED; BEDRAILS UP X2; BED DOWN. ER MD MADE AWARE OF PT STATUS. PMH: DM, HTN RX: DENIES
--- NOTE | 2018-12-01 04:51 | NUR ---
Dr. Castle evaluating patient at bedside.
[2018-12-01] MEDS ORDERED: KETOROLAC 60 MG/2 ML VIAL IM ONE (04:55)
--- NOTE | 2018-12-01 05:55 | NUR ---
Patient discharged with v/s stable. Written and verbal after care instructions given and explained. Patient alert, oriented and verbalized understanding of instructions. Assisted with wheelchair. All questions addressed prior to discharge. ID band removed. Patient advised to follow up with PMD. Homeless meal provided, patient has wheather appropriate clothes, resource packet provided. Rx of Motrin given. Patient educated on indication of medication including possible reaction and side effects. Opportunity to ask questions provided and answered.
[2018-12-01 06:03] VITALS: BP 115/70
== END 2018-12-01 05:55 | disposition home or self-care (01) ==
LOC: MED 01:55
DX: M25.551 Pain in right hip (principal); M25.552 Pain in left hip; F17.200 Nicotine dependence, unspecified, uncomplicated; E11.9 Type 2 diabetes mellitus without complications; K21.9 Gastro-esophageal reflux disease without esophagitis; I10 Essential (primary) hypertension; Z79.891 Long term (current) use of opiate analgesic; Z79.82 Long term (current) use of aspirin; Z79.01 Long term (current) use of anticoagulants; Z79.899 Other long term (current) drug therapy; Z79.84 Long term (current) use of oral hypoglycemic drugs
CPT/HCPCS: 96372; 99283; J1885